=== PATIENT | female | born 1970 | race Caucasian/White ===

== ENCOUNTER 2020-01-31 14:14 | Emergency (ER) | payer OTHER, SELFPAY ==
[2020-01-31 14:27] VITALS: BP 135/81; PULSE 84; RESP 18; TEMP 36.4; O2SAT 99; BMI 34.9
[2020-01-31 18:36] VITALS: BP 151/88; PULSE 76; RESP 15; TEMP 36.9; O2SAT 100
[2020-01-31 19:09] LABS: Glucose Urine UA NEG (NEG); Leukocyte Esterase Urine 1+ (NEG); Nitrite Urine POS (NEG); Specific Gravity - Urine 1.025 (1.005-1.025); Urine Blood 3+ (NEG); Urine Ketones NEG (NEG); Urine Protein 2+ MG/DL (NEG-TRACE)
[2020-01-31 19:09] LABS: Basophils Absolute Auto 0.1 X10*3/uL (0.0-0.2); Basophils Percent Auto 0.9 % (0-2); Eosinophils Absolute Auto 0.3 X10*3/uL (0.0-0.4); Eosinophils Percent Auto 4.1 % (0-4); Hematocrit 36.6 % (37-47); Hemoglobin 12.2 g/dl (12.0-16.0); Imm Gran Abs Auto 0.02 X10*3/uL (0.00-0.03); Imm Gran Pct Auto 0.3 % (0.0-0.4); Lymphocytes Absolute Auto 1.9 X10*3/uL (1.2-4.9); Lymphocytes Percent Auto 25.6 % (20-40); MANUAL DIFF FLAG NO; Mean Corpuscular HGB Conc 33.3 g/dl (31.0-35.0); Mean Corpuscular Hemoglobin 29.3 pg (27.0-33.0); Mean Corpuscular Volume 87.8 fL (80-98); Monocytes Absolute Auto 0.5 X10*3/uL (0.1-1.2); Monocytes Percent Auto 6.1 % (2-11); Neutrophils Absolute Auto 4.7 X10*3/uL (2.0-8.3); Platelet Count 256 X10*3/uL (160-400); Red Blood Count 4.17 X10*6/uL (4.20-5.50); Red Cell Distribution Width 12.7 % (11.0-16.0); White Blood Count 7.5 X10*3/uL (4.8-10.8)
[2020-01-31 19:10] LABS: Appearance Urine CLOUDY; Color Urine YELLOW
[2020-01-31 19:20] LABS: Bacteria Urine 3+ /LPF; Squamous Epithelial Cell Urine 2+ /LPF
--- NOTE | 2020-01-31 19:21 | ED.ABDPAIN ---
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 not work MD elicited complaint: abdominal pain Pertinent past history: none Onset (ago): week(s) (1 week) Pain Consistency: intermittent Location: diffuse Severity: mild Quality: cramping Radiation: epigastric and suprapubic Migration to: no migration Exacerbating factors: nothing Relieving factors: nothing Associated symptoms: denies other symptoms Related Data Previous Rx's Medication Instructions Recorded ciprofloxacin HCl [Cipro] 500 mg PO BID #10 tab 01/31/20 permethrin 60 ml TOPICAL Q7D #118 ml 01/31/20 Allergies Allergy/AdvReac Type Severity Reaction Status Date / Time No Known Allergies Allergy Unverified 12/21/19 16:23 Review of Systems Review of Systems REVIEW OF SYSTEMS: Pertinent positives and negatives are stated above in the history. GEN: no fevers, chills, fatigue HEENT: no nasal congestion, sore throat, ear pain NEURO: no headache, dizziness, focal weakness PULM: no cough, shortness of breath CV: no chest pain, palpitations, LE edema ABD: no abdominal pain, nausea, vomiting, diarrhea : no dysuria, urgency, frequency SKIN: diffuse erythematous rash ROS otherwise negative x 10 Physical Exam Vital Signs: Vital Signs: Vital Signs Temp Pulse Resp BP Pulse Ox 01/31/20 18:36 98.4 F 76 15 151/88 H 100 01/31/20 14:27 97.6 F 84 18 135/81 99 Body Mass Index 34.9 VITAL SIGNS: Reviewed. GENERAL: Well developed, well nourished, in no acute distress. HEAD: Normocephalic/atraumatic, EYES: PERRLA No pallor/icterus noted EARS: Ext canals without abnormality NOSE: Nares patent bilateral OROPHARYNX: Oral mucosa moist no oral lesions NECK: Supple, no adenopathy LUNGS: Normal breath sounds. No adventitious sounds or accessory muscle use CARDIOVASCULAR: Regular rate and rhythm without noted murmurs, no JVD or lower extremity edema. ABDOMEN: Soft, mild diffuse tenderness , non-distended with bowel sounds. No rigidity. No guarding. No palpable masses or hernias noted MUSCULOSKELETAL: No tenderness, deformities, EXTREMITIES: No cyanosis or edema. SKIN: diffuse maculopapular rash on trunk and extremities, no ulcerations, jaundice, pallor, or petechiae NEUROLOGIC: Alert and oriented x 3. Strength and sensation to light touch were grossly intact Course Course Course Narrative: patient with questionable scabies diffuse abdominal pain workup showed normal WBC count but urine showed bacteria and nitrite positive will give her Cipro and permethrin lotion advised to follow-up with her primary care doctor MDM - Abdominal Pain Lab Data Result diagrams: 01/31/20 19:01/31/20 19:01 Labs: Lab Results 01/31/20 01/31/20 01/31/20 Range/Units 19:01 19:01 19:01 WBC 7.5 (4.8-10.8) X10*3/uL RBC 4.17 L (4.20-5.50) X10*6/uL Hgb 12.2 (12.0-16.0) g/dl Hct 36.6 L (37-47) % MCV 87.8 (80-98) fL MCH 29.3 (27.0-33.0) pg MCHC 33.3 (31.0-35.0) g/dl RDW 12.7 (11.0-16.0) % Plt Count 256 (160-400) X10*3/uL MPV 10.0 (9.4-12.3) fL Immature Gran % (Auto) 0.3 (0.0-0.4) % Neut % (Auto) 63.0 (45-73) % Lymph % (Auto) 25.6 (20-40) % [place] % (Auto) 6.1 (2-11) % Eos % (Auto) 4.1 H (0-4) % Baso % (Auto) 0.9 (0-2) % Lymph # (Auto) 1.9 (1.2-4.9) X10*3/uL [place] # (Auto) 0.5 (0.1-1.2) X10*3/uL Eos # (Auto) 0.3 (0.0-0.4) X10*3/uL Baso # (Auto) 0.1 (0.0-0.2) X10*3/uL Abs Immat Gran (auto) 0.02 (0.00-0.03) X10*3/uL Absolute Neuts (auto) 4.7 (2.0-8.3) X10*3/uL Absolute Nucleated RBC 0.000 (0.0-0.012) X10*3/uL Nucleated RBC % (auto) 0.0 (0.0-0.2) /100WBC Sodium 137 (135-145) mmol/L Potassium 4.0 (3.3-5.1) mmol/l Chloride 103 (96-108) mmol/L Carbon Dioxide 27 (22-29) mmol/L Anion Gap 11 L (12-20) BUN 13 (9-16) mg/dL Creatinine 0.79 (0.5-1.4) mg/dL Estim Creat Clear Calc 98.3 Estimated GFR > 60 Random Glucose 92 (60-115) mg/dL Calcium 8.9 (8.4-10.2) mg/dL Total Bilirubin 0.4 (0.0-1.0) mg/dL Direct Bilirubin 0.2 (0.0-0.5) mg/dL AST 15 (5-31) U/L ALT 13 (0-31) U/L Alkaline Phosphatase 67 (39-117) U/L Total Protein 7.0 (6.5-8.0) g/dL Albumin 4.1 (3.5-5.0) g/dL Lipase 26 (8-78) U/L Urine Color Urine Appearance Urine pH (5.0-8.0) Ur Specific [place] (1.005-1.025) Urine Protein (NEG-TRACE) MG/DL Urine Glucose (UA) (NEG) MG/DL Urine Ketones (NEG) MG/DL Urine Blood (NEG) Urine Nitrite (NEG) Ur Leukocyte Esterase (NEG) Urine RBC (0) /HPF Urine WBC (0-4) /HPF Ur Squamous Epith Cells /LPF Urine Bacteria /LPF 01/31/20 Range/Units 19:02 WBC (4.8-10.8) X10*3/uL RBC (4.20-5.50) X10*6/uL Hgb (12.0-16.0) g/dl Hct (37-47) % MCV (80-98) fL MCH (27.0-33.0) pg MCHC (31.0-35.0) g/dl RDW (11.0-16.0) % Plt Count (160-400) X10*3/uL MPV (9.4-12.3) fL Immature Gran % (Auto) (0.0-0.4) % Neut % (Auto) (45-73) % Lymph % (Auto) (20-40) % [place] % (Auto) (2-11) % Eos % (Auto) (0-4) % Baso % (Auto) (0-2) % Lymph # (Auto) (1.2-4.9) X10*3/uL [place] # (Auto) (0.1-1.2) X10*3/uL Eos # (Auto) (0.0-0.4) X10*3/uL Baso # (Auto) (0.0-0.2) X10*3/uL Abs Immat Gran (auto) (0.00-0.03) X10*3/uL Absolute Neuts (auto) (2.0-8.3) X10*3/uL Absolute Nucleated RBC (0.0-0.012) X10*3/uL Nucleated RBC % (auto) (0.0-0.2) /100WBC Sodium (135-145) mmol/L Potassium (3.3-5.1) mmol/l Chloride (96-108) mmol/L Carbon Dioxide (22-29) mmol/L Anion Gap (12-20) BUN (9-16) mg/dL Creatinine (0.5-1.4) mg/dL Estim Creat Clear Calc Estimated GFR Random Glucose (60-115) mg/dL Calcium (8.4-10.2) mg/dL Total Bilirubin (0.0-1.0) mg/dL Direct Bilirubin (0.0-0.5) mg/dL AST (5-31) U/L ALT (0-31) U/L Alkaline Phosphatase (39-117) U/L Total Protein (6.5-8.0) g/dL Albumin (3.5-5.0) g/dL Lipase (8-78) U/L Urine Color YELLOW Urine Appearance CLOUDY Urine pH 7.0 (5.0-8.0) Ur Specific [place] 1.025 (1.005-1.025) Urine Protein 2+ H (NEG-TRACE) MG/DL Urine Glucose (UA) NEG (NEG) MG/DL Urine Ketones NEG (NEG) MG/DL Urine Blood 3+ H (NEG) Urine Nitrite POS H (NEG) Ur Leukocyte Esterase 1+ H (NEG) Urine RBC 15-29 H (0) /HPF Urine WBC 15-29 H (0-4) /HPF Ur Squamous Epith Cells 2+ /LPF Urine Bacteria 3+ /LPF Discharge Plan Discharge Clinical Impression: UTI (urinary tract infection), Scabies Patient Disposition: Home, Self-Care Instructions: Urinary Tract Infection in Women (ED), Scabies (ED) Additional Instructions: drink plenty of fluids, apply cream for scabies as advised repeat in 7 days Prescriptions: New permethrin 1 % liquid 60 ml topical Q7D Qty: 118 RF: 0 ciprofloxacin HCl [Cipro] 500 mg tablet 500 mg PO BID Qty: 10 RF: 0 Interventions: ED Discharge Assessment Last Done: 01/31/20 21:42 Discharge Date/Time: 01/31/20 21:50 [facility], [facility] Past Medical History Medical History Scabies Social History Social History Smoking Status: Never smoker Use of substances other than those prescribed or required for medical reasons: No Advance Directives: No Advance Directives Information Provided: Yes
[2020-01-31 19:43] LABS: Anion Gap 11 (12-20); Blood Urea Nitrogen 13 mg/dL (9-16); Calcium 8.9 mg/dL (8.4-10.2); Carbon Dioxide 27 mmol/L (22-29); Chloride 103 mmol/L (96-108); Creatinine Clr Calc Pharmacy 98.3; Estimated Glomerular Filt Rate > 60; Glucose Random 92 mg/dL (60-115); Lipase 26 U/L (8-78); Sodium 137 mmol/L (135-145)
[2020-01-31 19:44] LABS: Alanine Aminotransferase 13 U/L (0-31); Albumin Level 4.1 g/dL (3.5-5.0); Alkaline Phosphatase 67 U/L (39-117); Aspartate Amino Transferase 15 U/L (5-31); Bilirubin Direct 0.2 mg/dL (0.0-0.5); Bilirubin Total 0.4 mg/dL (0.0-1.0)
[2020-01-31] MEDS: 0.9 % Sodium Chloride 1,000 ML 999 ML IVCONT (19:53)
[2020-01-31] MEDS: levoFLOXacin 500 MG TABLET PO (21:44)
== END 2020-01-31 21:50 | disposition home or self-care (01) ==
PROVIDERS: Emergency Provider Internal Medicine; PCP Family Medicine
DX: N39.0 Urinary tract infection, site not specified (principal); R10.13 Epigastric pain; B86 Scabies; Z79.899 Other long term (current) drug therapy
CPT/HCPCS: 36415; 80048; 80076; 81001; 83690; 85025; 87086; 87088; 87186; 96360; 99284

== ENCOUNTER → 2020-08-28 14:33 | Outpatient (BNVA) | payer OTHER, SELFPAY | PROVIDERS: PCP Family Medicine | DX: Z11.1 Encounter for screening for respiratory tuberculosis (principal) | CPT/HCPCS: 36415; 86481 ==

== ENCOUNTER 2021-06-17 23:37 | Emergency (ER) | payer OTHER, SELFPAY ==
[2021-06-18 00:03] VITALS: BP 134/86; PULSE 87; RESP 18; TEMP 37.1; O2SAT 97; BMI 36.6
[2021-06-18 00:23] LABS: Strep A Nucleic Acid Negative (Negative)
--- NOTE | 2021-06-18 01:20 | ED.GENADULT ---
HPI - General Adult General Chief complaint: General Medical Stated complaint: Sore throat/?Fever Time Seen by Provider: 06/18/21 00:13 Source: patient Mode of arrival: ambulatory Limitations: no limitations History of Present Illness HPI narrative: Patient comes to the emergency room complaining of mild cough and sore throat for 5 days. Patient denies fever or chills. No ear pain. Patient states that she gets tested for COVID-19 once a week at her work and she has been tested negative. Related Data Previous Rx's Medication Instructions Recorded ciprofloxacin HCl 500 mg tablet 500 mg PO BID #10 tab 01/31/20 (Cipro) permethrin 1 % topical liquid 60 ml TOPICAL Q7D #118 ml 01/31/20 Allergies Allergy/AdvReac Type Severity Reaction Status Date / Time No Known Allergies Allergy Unverified 12/21/19 16:23 Review of Systems Review of Systems: Constitutional : No Weight loss, No Fever, No Chills, No Night Sweats, No Fatigue, No Malaise ENT/Mouth : No Hearing loss, No Ear Pain, No Nasal Congestion, No Sinus Pain, complaining of intermittent hoarseness, constant sore throat, No Rhinorrhea, No Swallowing Difficulty Eyes: No Eye Pain, No Swelling, No Redness, No Foreign Body, No Discharge, No Vision Changes Cardiovascular : No Chest Pain, No SOB, No Dyspnea on Exertion, No Orthopnea, No Edema, No Palpitations Respiratory : Mild Cough, No Sputum, No Wheezing, No Smoke Exposure, No Dyspnea Gastrointestinal : No Nausea, No Vomiting, No Diarrhea, No Constipation, No abdominal Pain, No Hematochezia, No Melena Genitourinary : no irregular bleeding, No Dysuria, No Urinary Frequency, No Hematuria, No Urinary Incontinence, No Urgency, No Flank Pain, No Urinary Flow Changes, No Hesitancy Musculoskeletal : No joint pain, No Myalgias, No Joint Swelling Skin : No Skin Lesions, No rash Neuro : No Weakness, No Numbness, No Paresthesias, No Loss of Consciousness, No Dizziness, No Headache Psych : No Anxiety/Panic, No Depression, No SI/HI/AH/VH, No Social Issues, Heme/Lymph: No Bruising, No Bleeding,No Lymphadenopathy Endocrine : No Polyuria, No Polydipsia, No Temperature Intolerance [facility] Past Medical History Medical History Scabies Social History Social History Advance Directives: No Patient : No Physical Exam ED Vital Signs: Vital Signs - 24 hr 06/18/21 00:03 Temperature 98.8 F Pulse Rate 87 Respiratory Rate 18 Blood Pressure 134/86 Pulse Oximetry 97 BMI result Body Mass Index 36.6 Const Other: Appearance: Alert. Oriented X3. No acute distress. Eyes: Pupils equal, round and reactive to light. ENT: Pharynx is erythema,, no exudates, no visualized abscesses. Tympanic membranes and ear canals bilaterally within normal limits Neck: Normal inspection. Neck supple. No lymph nodes noted. No crepitus CVS: Normal heart rate and rhythm. Pulses normal. Normal S1 and S2 Respiratory: No respiratory distress. Breath sounds normal. No Wheezing. No rales Abdomen: Soft and nontender. No rigidity. No distention. Skin: Skin warm and dry. Normal skin color. Normal skin turgor. Extremities: No lower extremity edema. No Lacerations. No Rash Neuro: Oriented X 3. No motor deficit. No sensory deficit. Moving all extremities. No slurred speech. CN 2 through 12 grossly intact Psych: calm, cooperative, normal affect Course Course Course Narrative: Patient tested negative for strep, influenza and COVID. At this time antibiotics are not indicated Patient was given 1 dose of oral Decadron and viscous lidocaine. Medical Decision Making Lab Data Labs: Lab Results 06/18/21 06/18/21 06/18/21 Range/Units 00:08 01:04 01:04 COVID-19 (ABRAN) Negative (Negative) COVID-19 Clin Com See Note Influenza Type A (MEAGHAN) Negative (Negative) Influenza Type B (MEAGHAN) Negative (Negative) Influenza A & B Note See Note S. pyogenes GrpA MEAGHAN Negative (Negative) Discharge Plan Discharge Clinical Impression: Pharyngitis Patient Disposition: Home, Self-Care Instructions: Pharyngitis (ED) Additional Instructions: Please follow-up with your primary care physician tomorrow. If you have any worsening or new symptoms, please return to the emergency room or call 911 Prescriptions: No Action permethrin 1 % liquid 60 ml topical Q7D Qty: 118 0RF Rx Instructions: apply second treatment 7 days after first treatment if live lice remain ciprofloxacin HCl [Cipro] 500 mg tablet 500 mg PO BID Qty: 10 0RF
[2021-06-18 01:27] LABS: COVID-19 Test Negative (Negative); IDNOW Serial# 55D5AD1C; Influenza A Negative (Negative); Influenza B2 Negative (Negative)
[2021-06-18] MEDS: Lidocaine HCl Viscous 2 % 15 ML SOLUTION MUCOUS MEM (01:35)
[2021-06-18] MEDS: dexAMETHasone sod phosphate 4 MG/ML VIAL 6 MG IVPUSH (01:35)
== END 2021-06-18 01:45 | disposition home or self-care (01) ==
PROVIDERS: Physician Assistant Medical; Emergency Provider Emergency Medicine
DX: J02.9 Acute pharyngitis, unspecified (principal); Z20.822 Contact with and (suspected) exposure to COVID-19
CPT/HCPCS: 36415; 87502; 87635; 87651; 96374; 99283; 99284; J1100

== ENCOUNTER → 2021-09-22 10:40 | Outpatient (BNVA) | payer OTHER, SELFPAY | PROVIDERS: Visit Provider Physician Assistant Medical | DX: R76.11 Nonspecific reaction to tuberculin skin test without active tuberculosis (principal) | CPT/HCPCS: 36415; 86481 ==

== ENCOUNTER → 2022-09-28 11:11 | Outpatient (BNVA) | payer SELFPAY | DX: R76.11 Nonspecific reaction to tuberculin skin test without active tuberculosis (principal) | CPT/HCPCS: 36415; 86481 ==

== ENCOUNTER 2023-03-05 07:30 | Outpatient (AMB) | payer OTHER, SELFPAY ==
[2023-03-05 07:32] VITALS: BP 114/80; PULSE 95; O2SAT 98; BMI 36.8
--- NOTE | 2023-03-05 07:32 | MHC.PC.OV ---
Vital Signs 03/05/23 07:32 Height 5 ft 5 in Weight 221 lb BMI 36.8 BP 114/80 Blood Pressure Location Lt brachial Position Sitting Pulse 95 Pulse Source Pulse Oximeter Pulse Oximetry (%) 98 Oxygen Delivery Method Room Air Intake Visit Reasons: Annual PE- NEEDS PHQ-9 + THRIVE Intake Note: Pt is here today for her PE Allergies No Known Allergies Allergy (Verified 03/05/23 07:32) Medication List - Last Reconciled 03/05/23 by Louann Jones MD No Known Home Meds Tobacco use date assessed: 03/05/23 Dental Screening Dental Screen Date: 03/05/23 Did you have a dental visit in the last 12 months?: No Was dental information given to patient?: Patient has dentist HPI Annual PE- NEEDS PHQ-9 + THRIVE HPI Details 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 PFSH Medical History Scabies Family History (Updated 03/05/23 @ 08:01 by Louann Jones MD) Father CAD (coronary artery disease), Onset Age: 50 Mother Pacemaker Social History (Updated 03/05/23 @ 08:05 by Louann Jones MD) Household Members Other:: lives with partner, 3 children (6, 13, 28), works for [employer], Housing: Apartment Patient Tobacco Use Status: Never used Tobacco e-Cigarette/Vaping Use: Never Used service: No Current occupational status: employed Cognitive needs: No Hearing needs: No Vision needs: No Questionnaire PHQ-9 Over the last 2 weeks, how often have you been bothered by any of the following problems? 1. Little interest or pleasure in doing things: not at all 2. Feeling down, depressed, or hopeless: several days 3. Trouble falling or staying asleep, or sleeping too much: several days 4. Feeling tired or having little energy: several days 5. Poor appetite or overeating: several days 6. Feeling bad about yourself - or that you are a failure or have let yourself or your family down: not at all 7. Trouble concentrating on things, such as reading the newspaper or watching television: not at all 8. Moving or speaking so slowly that other people could have noticed. Or the opposite - being so fidgety or restless that you have been moving around a lot more than usual: not at all 9. Thoughts that you would be better off or of hurting yourself in some way: not at all Total score: 4 Depression Screening Interpretation: Negative Depression Screening Done: Yes 00535 - PHQ-9 Billing: Patient declined-do not bill Source: Developed by Drs. Manpreet Arriaga, Patricia Mckeon, Gera López and colleagues, with an educational vianney from [employer]. Thrive Questionnaire Date Thrive assessed: 03/05/23 I am a: Patient What is your living situation today?: I have a steady place to live Within the past 12 months, did the food you bought not last and you didn't have the money to get more?: Never true Within the past 12 months, did you worry whether your food would run out before you got money to buy more?: Never true Do you have trouble paying for medicines?: No Do you have trouble getting transportation to medical appointments?: No Do you have trouble paying your heating and electricity bill?: No Do you have trouble taking care of your child, family member or friend?: No Do you have trouble with day-to-day activities such as bathing, preparing meals, shopping, managing finances, etc.?: No Are you currently unemployed and looking for a job?: No Are you interested in more education?: No AUDIT C Alcohol Use Questionnaire (AUDIT-C) 1. How often do you have a drink containing alcohol?: Monthly or less 2. How many drinks containing alcohol do you have on a typical day when you are drinking?: 1 or 2 3. How often do you have six or more drinks on one occasion?: Never Total Score: 1 OSEI-7 AMB Questionnaire OSEI-7 Date OSEI - 7 assessed: 03/05/23 Feeling nervous, anxious, or on edge: 0 = Not at all Not being able to stop or control worryin = Several days Worrying too much about different things: 1 = Several days Trouble relaxin = Several days Being so restless that it is hard to sit still: 0 = Not at all Becoming easily annoyed or irritable: 1 = Several days Feeling afraid as if something awful might happen: 0 = Not at all Total OSEI-7 score (0-4 normal; 5-9 mild; 10-14 moderate; 15-21 severe): 4 Source: Developed by Drs. Manpreet Arriaga, Patricia Mckeon, Gera López and colleagues, with an educational vianney from [employer]. Review of Systems Const All systems reviewed & are unremarkable except as noted in HPI and below Reports no additional complaints Eyes Reports no additional complaints ENT Reports no additional complaints Card Reports no additional complaints Resp Reports no additional complaints GI Reports no additional complaints Reports no additional complaints Physical exam (Primary Care) Vital Signs: Last Vital Signs Pulse 95 03/05/23 07:32 BP 114/80 03/05/23 07:32 Pulse Ox 98 03/05/23 07:32 Oxygen Delivery Method Room Air 03/05/23 07:32 BMI result Body Mass Index 36.8 Tobacco/Smoking Status: Tobacco use Status Tobacco use date assessed 03/05/23 03/05/23 07:37 Patient Tobacco Use Status Never used Tobacco 03/05/23 07:37 e-Cigarette/Vaping Use Never Used 03/05/23 07:37 PHQ-9: PHQ-9 Score PHQ-9: Total score 4 03/05/23 07:53 Depression Screening Interpretation: Negative Thrive Assessment: Date of Thrive Assessment Date Thrive assessed 03/05/23 03/05/23 07:53 Const General: no acute distress HENMT Head: Yes normal to inspection Ears: hearing grossly normal bilaterally Face and sinus: Yes normal facial exam Mouth: Normal oral and palatal mucosa present Throat: Yes posterior oropharynx normal Eyes General: appearance normal, both eyes and all related structures Neck Neck: Yes no lymphadenopathy and Yes supple Chest Breast/axilla inspection: normal inspection of the breasts Breast/axilla palpation: normal palpation of the breasts and normal palpation of the axillae Resp Effort & Inspection: normal respiratory effort Auscultation: clear to auscultation bilaterally Cardio Rhythm: regular rhythm Heart sounds: S1 normal heart sound present and S2 normal heart sound present GI Inspection: Yes normal to inspection Palpation (GI): Soft to palpation Percussion: Yes normal to percussion Auscultation: normal bowel sounds External Female Exam: normal external appearance Speculum Exam - Vagina: normal appearance of the vagina Speculum Exam - Cervix: normal appearance of the cervix Bimanual exam- vagina & uterus: normal bimanual exam Assessment and Plan Assessment & Plan (1) Annual physical exam: Code(s): Z00.00 - Encounter for general adult medical examination without abnormal findings Plan: well balanced diet, regular exercise discussed, pap done, pt will return for fasting labs. mammogram and colonoscopy to be scheduled Orders: Orders Complete Blood Count Auto Diff Today Z00.00 - Encounter for general adult medical examination without abnormal findings Pap Smear Today Z00.00 - Encounter for general adult medical examination without abnormal findings MM screening mammo BI Today Z12.31 - Encounter for screening mammogram for malignant neoplasm of breast Comprehensive [place]. Panel Fast Today Z00.00 - Encounter for general adult medical examination without abnormal findings Lipid Panel Today Z00.00 - Encounter for general adult medical examination without abnormal findings TSH reflex Free T4 Today Z00.00 - Encounter for general adult medical examination without abnormal findings Vitamin D 25-OH Total Today Z00.00 - Encounter for general adult medical examination without abnormal findings Referrals Gastroenterology Referral Z00.00 - Encounter for general adult medical examination without abnormal findings Coding Level of Care Code New Pt Prev Care 40-64y(22342) Diagnoses Annual physical exam Z00.00
== END 2023-03-05 10:38 | disposition home or self-care (01) ==
PROVIDERS: Visit Provider Internal Medicine
DX: Z00.00 Encounter for general adult medical examination without abnormal findings (principal)
CPT/HCPCS: 99386

== ENCOUNTER 2023-03-05 08:34 | Outpatient (REF) | payer OTHER, SELFPAY ==
[2023-03-12 07:45] LABS: HPV mRNA E6/E7 Not Detected (Not Detected)
== END 2023-03-05 08:35 | disposition home or self-care (01) ==
LOC: HO.LNP 08:34
PROVIDERS: Visit Provider Internal Medicine
DX: Z12.4 Encounter for screening for malignant neoplasm of cervix (principal); Z11.51 Encounter for screening for human papillomavirus (HPV)
CPT/HCPCS: 87624; 88142

== ENCOUNTER 2023-03-06 10:47 | Outpatient (REF) | payer OTHER, SELFPAY ==
[2023-03-06 13:39] LABS: MANUAL DIFF FLAG NO
[2023-03-06 13:41] LABS: Basophils Absolute Auto 0.1 X10*3/uL (0.0-0.2); Basophils Percent Auto 1.1 % (0-2); Eosinophils Absolute Auto 0.2 X10*3/uL (0.0-0.4); Eosinophils Percent Auto 2.1 % (0-4); Hematocrit 40.5 % (37.0-47.0); Hemoglobin 13.2 g/dl (12.0-16.0); Imm Gran Abs Auto 0.03 X10*3/uL (0.00-0.03); Imm Gran Pct Auto 0.4 % (0.0-0.4); Lymphocytes Absolute Auto 1.8 X10*3/uL (1.2-4.9); Lymphocytes Percent Auto 23.6 % (20-40); Mean Corpuscular HGB Conc 32.6 g/dl (31.0-35.0); Mean Corpuscular Hemoglobin 29.8 pg (27.0-33.0); Mean Corpuscular Volume 91.4 fL (80.0-98.0); Mean Platelet Volume 10.9 fL (9.4-12.3); Monocytes Absolute Auto 0.5 X10*3/uL (0.1-1.2); Monocytes Percent Auto 6.6 % (2-11); Neutrophils Percent Auto 66.2 % (45-73); Platelet Count 275 X10*3/uL (160-400); Red Blood Count 4.43 X10*6/uL (4.20-5.50); Red Cell Distribution Width 13.2 % (11.0-16.0); White Blood Count 7.5 X10*3/uL (4.8-10.8)
[2023-03-06 14:02] LABS: Alanine Aminotransferase 19 U/L (0-31); Albumin Level 4.1 g/dL (3.5-5.0); Alkaline Phosphatase 65 U/L (39-117); Anion Gap 12 (12-20); Aspartate Amino Transferase 20 U/L (5-31); Bilirubin Total 0.5 mg/dL (0.0-1.0); Blood Urea Nitrogen 17 mg/dL (9-16); Calcium 9.4 mg/dL (8.4-10.2); Carbon Dioxide 26 mmol/L (22-29); Chloride 108 mmol/L (96-108); Cholesterol 189 mg/dL (<200); Estimated Glomerular Filt Rate > 60; Glucose Fasting 101 mg/dL (60-99); HDL Cholesterol 57 mg/dL (>40); LDL Cholesterol Calculated 110 mg/dL (<100); Potassium 4.5 mmol/L (3.3-5.1); Sodium 141 mmol/L (135-145); Total Protein 7.2 g/dL (6.5-8.0); Triglycerides 111 mg/dL (<150)
[2023-03-06 14:11] LABS: TSH reflex Free T4 1.16 uIU/mL (0.32-4.0); Vitamin D 25-OH Total 26.6 ng/mL (>30)
== END 2023-03-06 10:48 | disposition home or self-care (01) ==
LOC: HO.HMGCLDS 10:47
PROVIDERS: PCP Internal Medicine; Visit Provider Internal Medicine
DX: Z00.00 Encounter for general adult medical examination without abnormal findings (principal)
CPT/HCPCS: 36415; 80053; 80061; 82306; 84443; 85025

== ENCOUNTER 2023-03-22 11:15 | Outpatient (AMB) | payer OTHER, SELFPAY ==
--- NOTE | 2023-03-22 11:17 | MHC.PC.OV ---
Vital Signs 03/22/23 11:20 Height 5 ft 5 in Weight 221 lb BMI 36.8 BP 130/80 Blood Pressure Location Lt brachial Position Sitting Pulse 77 Pulse Source Pulse Oximeter Pulse Oximetry (%) 96 Oxygen Delivery Method Room Air Intake Visit Reasons: Elbow pain, cramps Intake Note: Pt is here today for a sick visit. Pt c/o lower abdominal cramps, and R elbow pain. Allergies No Known Allergies Allergy (Verified 03/22/23 11:20) Medication List - Last Reconciled 03/22/23 by Louann Jones MD No Known Home Meds Tobacco use date assessed: 03/05/23 HPI Elbow pain, cramps HPI Details Pt c/o R elbow pain for 1 week worse when using it. Patient denies injury but has been using her upper extremities a lot lifting and caring. Patient complains of pelvic cramps and lower abdominal discomfort on and off for the last month. Patient denies spotting her last period was 2 months ago. Patient reports history of uterine fibroids. She reports heavy vaginal bleeding every other month lasting up to a week. Patient denies fever chills dysuria back pain nausea vomiting change in bowel habits hematochezia [facility] Medical History Scabies Family History (Updated 03/05/23 @ 08:01 by Louann Jones MD) Father CAD (coronary artery disease), Onset Age: 50 Mother Pacemaker Social History (Updated 03/05/23 @ 08:05 by Louann Jones MD) Household Members Other:: lives with partner, 3 children (6, 13, 28), works for [employer], Housing: Apartment Patient Tobacco Use Status: Never used Tobacco e-Cigarette/Vaping Use: Never Used service: No Current occupational status: employed Cognitive needs: No Hearing needs: No Vision needs: No Questionnaire Thrive Questionnaire Date Thrive assessed: 03/05/23 OSEI-7 AMB Questionnaire OSEI-7 Date OSEI - 7 assessed: 03/05/23 Source: Developed by Drs. Manpreet Arriaga, Patricia Mckeon, Gera López and colleagues, with an educational vianney from [employer] Review of Systems Const All systems reviewed & are unremarkable except as noted in HPI and below Reports no additional complaints Eyes Reports no additional complaints ENT Reports no additional complaints Card Reports no additional complaints Resp Reports no additional complaints GI Reports no additional complaints Physical exam (Primary Care) Vital Signs: Last Vital Signs Pulse 77 03/22/23 11:20 BP 130/80 03/22/23 11:20 Pulse Ox 96 03/22/23 11:20 Oxygen Delivery Method Room Air 03/22/23 11:20 BMI result Body Mass Index 36.8 Tobacco/Smoking Status: Tobacco use Status Tobacco use date assessed 03/05/23 03/22/23 11:19 Patient Tobacco Use Status Never used Tobacco 03/22/23 11:19 e-Cigarette/Vaping Use Never Used 03/22/23 11:19 Thrive Assessment: Date of Thrive Assessment Date Thrive assessed 03/05/23 03/22/23 11:19 Const General: no acute distress HENMT Head: Yes normal to inspection Resp Effort & Inspection: normal respiratory effort Auscultation: clear to auscultation bilaterally Cardio Rhythm: regular rhythm Heart sounds: S1 normal heart sound present and S2 normal heart sound present GI Inspection: Yes obesity Palpation (GI): Soft to palpation and Tenderness to palpation present (GI) suprapubicly; with no rebound tenderness Auscultation: normal bowel sounds Extrem Other: Reproducible tenderness in the right lateral elbow, no soft tissue swelling erythema warmth Assessment and Plan Assessment & Plan (1) Pelvic mass: Code(s): R19.00 - Intra-abdominal and pelvic swelling, mass and lump, unspecified site Plan: Obtain pelvic ultrasound to evaluate for uterine fibroids (2) Pelvic pain: Code(s): R10.2 - Pelvic and perineal pain Plan: Check UA and culture , obtain abdominal and pelvic ultrasound (3) Tennis elbow: Code(s): M77.10 - Lateral epicondylitis, unspecified elbow Plan: Meloxicam Is prescribed and elbow exercises given to the patient. if the symptoms persist she will be referred to PT Orders: Orders US pelvic and transvaginal Today R10.2 - Pelvic and perineal pain, R19.00 - Intra-abdominal and pelvic swelling, mass and lump, unspecified site UA CC w/rflx Micro + Cult Today R10.2 - Pelvic and perineal pain, R30.0 - Dysuria US abdomen complete Today R19.00 - Intra-abdominal and pelvic swelling, mass and lump, unspecified site Medications: New meloxicam 15 mg PO DAILY 10 tabs 0RF Coding Level of Care Code Est Pt Level 4 (83450) Diagnoses Pelvic mass R19.00 Pelvic pain R10.2 Tennis elbow M77.10
[2023-03-22 11:20] VITALS: BP 130/80; PULSE 77; O2SAT 96; BMI 36.8
== END 2023-03-22 11:55 | disposition home or self-care (01) ==
PROVIDERS: PCP Internal Medicine; Visit Provider Internal Medicine
DX: R19.00 Intra-abdominal and pelvic swelling, mass and lump, unspecified site (principal); R10.2 Pelvic and perineal pain; M77.10 Lateral epicondylitis, unspecified elbow
CPT/HCPCS: 99214

== ENCOUNTER 2023-03-22 13:29 | Outpatient (REF) | payer OTHER, SELFPAY ==
--- NOTE | ~2023-03-22 | US_ITS ---
EXAMINATION: US PELVIS CLINICAL INFORMATION: Pelvic cramps. Lower abdominal pain. LMP 2 months ago. COMPARISON: None available. TECHNIQUE: Ultrasound of the pelvis is performed using both transabdominal and transvaginal transducers along with Doppler. Transvaginal imaging is performed due to inadequate visualization transabdominally. Technically limited study due to patient's body habitus and overlying bowel gas. FINDINGS: Uterus: The uterus is anteverted. Uterus echotexture is heterogeneous. The uterus measures 9.8 x 5.7 x 6.4 cm. The endometrial stripe measures 0.7 cm. Fundal fibroid measures 2.4 x 2.1 x 2.4 cm. Lower uterine segment fibroid measures 1.2 x 0.9 x 1.5 cm. Cervical nabothian cyst. Loculated fluid in the scar. Adnexa: Both ovaries are not well visualized. There is no pelvic ascites or fluid collection. US/US pelvic and transvaginal IMPRESSION: Uterine fibroids.
[2023-03-22 16:25] LABS: Appearance Urine Cloudy; Color Urine Yellow; Glucose Urine UA Negative (Negative); Leukocyte Esterase Urine Moderate (2+) (Negative); Nitrite Urine Positive (Negative); PH 6.5 (5.0-9.0); Specific Gravity - Urine 1.025 (1.005-1.025); UMIC TRIGGER UACC YES; Urine Blood Negative (Negative); Urine Ketones Negative (Negative); Urine Protein Negative (Neg-Trace)
[2023-03-22 16:49] LABS: Bacteria Urine 4+ (None Seen); Hyaline Casts Urine 0-2 /LPF (0-2); RBC Urine 0-2 /HPF (0-2); UACC Culture Trigger YES; WBC Urine 21-50 /HPF (0-5)
== END 2023-03-22 13:30 | disposition home or self-care (01) ==
LOC: HO.HMGCX 13:29
PROVIDERS: PCP Internal Medicine; Visit Provider Internal Medicine
DX: R10.2 Pelvic and perineal pain (principal); R19.00 Intra-abdominal and pelvic swelling, mass and lump, unspecified site
CPT/HCPCS: 76830; 76856; 81001; 87086; 87088; 87186

== ENCOUNTER 2023-04-16 12:01 | Outpatient (REF) | payer OTHER, SELFPAY ==
--- NOTE | ~2023-04-16 | MM_ITS ---
EXAMINATION: MM SCREENING DIGITAL BREAST TOMOSYNTHESIS, BILATERAL CLINICAL INFORMATION: Screening. Asymptomatic. COMPARISON: Mammography: This is a baseline mammogram. TECHNIQUE: Digital breast tomosynthesis is performed in both the craniocaudal and mediolateral oblique views along with computer-aided detection (CAD). Synthesized 2D images are generated from the tomosynthesis. FINDINGS: There are scattered areas of fibroglandular density (ACR BI-RADS breast composition Category b). There are no significant masses, abnormal calcifications, or other abnormalities. MM/MM tomosynthesis screening BI IMPRESSION: No mammographic evidence of malignancy. ASSESSMENT: BI-RADS BI-RADS 1 - Negative RECOMMENDATION: Routine annual mammography screening. 1 year F/U This examination should not preclude the clinical evaluation of a suspicious palpable abnormality. This patient's information was entered into a reminder system with a target due date for their next mammogram.
== END 2023-04-16 12:02 | disposition home or self-care (01) ==
LOC: HO.MAMMO 12:01
PROVIDERS: PCP Internal Medicine; Visit Provider Internal Medicine
DX: Z12.31 Encounter for screening mammogram for malignant neoplasm of breast (principal)
CPT/HCPCS: 77063; 77067

== ENCOUNTER → 2023-04-16 12:15 | Outpatient (BNV) | payer OTHER, SELFPAY | PROVIDERS: PCP Internal Medicine; Visit Provider Radiology Diagnostic Radiology | DX: Z12.31 Encounter for screening mammogram for malignant neoplasm of breast (principal) | CPT/HCPCS: 77063; 77067 ==

== ENCOUNTER 2023-05-14 12:00 | Emergency (ER) | payer OTHER, SELFPAY ==
--- NOTE | ~2023-05-14 | XR_ITS ---
EXAMINATION: XR CHEST CLINICAL INFORMATION: Chest pain COMPARISON: None available. TECHNIQUE: 2 views of the chest were obtained. FINDINGS: No significant abnormality is noted involving the heart, lungs, mediastinum, bony thorax or soft tissues. XR/XR chest 2V IMPRESSION: Unremarkable chest examination.
--- NOTE | 2023-05-14 12:05 | ECG_ITS ---
Test Reason : cp Blood Pressure : / mmHG Vent. Rate : 068 BPM Atrial Rate : 068 BPM P-R Int : 140 ms QRS Dur : 086 ms QT Int : 406 ms P-R-T Axes : 048 018 -01 degrees QTc Int : 431 ms Normal sinus rhythm Cannot rule out Inferior infarct , age undetermined Cannot rule out Anterior infarct , age undetermined Abnormal ECG No previous ECGs available Referred By: Kelsey Morrell Electronically Signed By:FREDDIE MCCARTY
[2023-05-14 12:17] VITALS: BP 173/99; PULSE 80; RESP 20; TEMP 37.2; O2SAT 97; BMI 36.6
--- NOTE | 2023-05-14 12:17 | ED_ITS ---
HPI - General Adult General Chief complaint: Chest Pain Stated complaint: chest/stomach pain Time Seen by Provider: 05/14/23 17:37 History of Present Illness HPI narrative: 52-year-old female who reports a history of uterine fibroids, presents for evaluation of substernal chest pain. Patient states symptoms began at approximately 11:00 a.m. while she was sitting at table in her kitchen. She reports it as a burning sensation followed by pressure. Since that time and has nearly completely resolved. She reports having a history of similar symptoms in the past and was evaluated in the emergency department at that time with a negative workup. Currently she is asymptomatic. She denies any shortness of breath, nausea or vomiting. She denies any neck or jaw pain. No radiation of her symptoms. No epigastric pain. She denies any tobacco or alcohol use. She reports regular spicy foods. She does endorse increased stressful situations at home as she is attempting to clear out the belongings of her father. She does report family history of cardiac disease. She has not tried any medication for this. She denies any NSAID use. No caffeine or soda. Related Data Previous Rx's Medication Instructions Recorded meloxicam 15 mg tablet 15 mg PO DAILY #10 tabs 03/22/23 nitrofurantoin 100 mg PO Q12H 7 days #14 caps 03/23/23 monohydrate/macrocrystals 100 mg capsule (Macrobid) omeprazole 20 mg tablet,delayed 20 mg PO DAILY #14 tabs 05/14/23 release Allergies Allergy/AdvReac Type Severity Reaction Status Date / Time No Known Allergies Allergy Verified 05/14/23 12:19 Review of Systems 2 Constitutional: Constitutional: Denies chills, Denies fever(s) and Denies headache(s) Eyes: Eyes: Denies change in vision and Denies other (No redness.) ENT: Denies headache(s), Denies nasal congestion, Denies nasal discharge, Denies neck pain and Denies sore throat Cardiovascular: Cardiovascular: Reports chest pain, Denies palpitations, Denies dyspnea, Denies dyspnea on exertion and Denies orthopnea Respiratory: Respiratory: Denies cough, Denies dyspnea and Denies dyspnea on exertion Gastrointestinal: Gastrointestinal: Denies abdominal pain, Denies melena, Denies hematochezia, Denies diarrhea, Denies nausea and Denies vomiting Genitourinary: Genitourinary: Denies dysuria and Denies urinary urgency Musculoskeletal: Musculoskeletal: Denies back pain, Denies muscle weakness, Denies neck pain and Denies numbness Integumentary/Breasts: Skin/Breast: Denies rash Neurologic: Denies headache(s), Denies focal weakness and Denies numbness Psychiatric: Psychiatric: Denies depression Endocrine: Endocrine: Denies palpitations [facility] Past Medical History Attestation statement: The following information was validated with the patient. [facility] Narrative: Uterine fibroid Medical History Scabies Family History Family History Father CAD (coronary artery disease), Onset Age: 50 Mother Pacemaker Social History Social History Household Members Other:: lives with partner, 3 children (6, 13, 28), works for [employer], Housing: Apartment Patient Tobacco Use Status: Never used Tobacco e-Cigarette/Vaping Use: Never Used Advance Directives: No Advance Directives Information Provided: No service: No Current occupational status: employed Cognitive needs: No Hearing needs: No Vision needs: No Physical Exam ED Vital Signs: Vital Signs - 24 hr 05/14/23 12:17 05/14/23 15:07 05/14/23 17:40 Temperature 98.9 F 97.1 F 98.4 F Pulse Rate 80 75 77 Respiratory Rate 20 18 18 Blood Pressure 173/99 H 158/83 H 149/95 H Pulse Oximetry 97 100 99 Oxygen Delivery Method Room Air Room Air Room Air BMI result Body Mass Index 36.6 Const General: cooperative, alert, awake and Physically active Eyes General: appearance normal, both eyes and all related structures Resp Auscultation: clear to auscultation bilaterally, no rales, no rhonchi and no wheezes Cardio Rate: regular rate Rhythm: regular rhythm GI Other: abdomen is soft without any tenderness. No Peña's sign. No peritoneal sign. No CVAT. Extrem Other: No calf tenderness or pedal edema Course Course Course Narrative: This is an RME: Additional HPI, ROS, PE not included below will be deferred to primary provider. Patient is a 52-year-old female who presents to emergency department for evaluation of Substernal chest pain/burning sensation with onset 1 hour prior to arrival. Associated nausea vomiting diarrhea or shortness of breath. Sudden onset while at rest has been constant since its onset. Reports a history of similar pain in the past, reportedly thought to be secondary to anxiety. Medical Decision Making Medical Decision Making [facility] Narrative: 50-year-old female history of uterine fibroids, presents for evaluation of chest pressure and burning that began earlier today. Patient confirms history of previous with negative workup. Today labs including cardiac enzymes, EKG and chest x-ray are unremarkable. Low suspicion for cardiopulmonary process. Suspect possible GI source. Patient agreeable for trial of omeprazole. No indication for dissection, no risk factors for PE. Patient feels comfortable with discharge plan home and will follow-up with PCP. As an aside she is currently being followed by Dr. Ray for uterine fibroids. Differential Diagnosis Differential Diagnoses: The differential diagnosis associated with the presentation includes ACS Dyspepsia Pneumonia Costochondritis Esophagitis Admission/Observation Consideration of admission/observation: Escalation of care including admission/observation considered consideration for admission if medically warranted. Lab Data [facility] Lab Attestation statement: I reviewed the patient's lab results. 05/14/23 12:59 05/14/23 12:59 Labs: Lab Results 05/14/23 05/14/23 Range/Units 12:59 16:09 WBC 8.8 (4.8-10.8) X10*3/uL RBC 4.56 (4.20-5.50) X10*6/uL Hgb 14.0 (12.0-16.0) g/dl Hct 41.5 (37.0-47.0) % MCV 91.0 (80.0-98.0) fL MCH 30.7 (27.0-33.0) pg MCHC 33.7 (31.0-35.0) g/dl RDW 12.7 (11.0-16.0) % Plt Count 254 (160-400) X10*3/uL MPV 10.1 (9.4-12.3) fL Immature Gran % (Auto) 0.5 H (0.0-0.4) % Neut % (Auto) 66.4 (45-73) % Lymph % (Auto) 24.5 (20-40) % [place]aver % (Auto) 5.2 (2-11) % Eos % (Auto) 2.4 (0-4) % Baso % (Auto) 1.0 (0-2) % Lymph # (Auto) 2.2 (1.2-4.9) X10*3/uL [place] # (Auto) 0.5 (0.1-1.2) X10*3/uL Eos # (Auto) 0.2 (0.0-0.4) X10*3/uL Baso # (Auto) 0.1 (0.0-0.2) X10*3/uL Abs Immat Gran (auto) 0.04 H (0.00-0.03) X10*3/uL Absolute Neuts (auto) 5.8 (2.0-8.3) x10*3/uL Absolute Nucleated RBC 0.000 (0.0-0.012) X10*3/uL Nucleated RBC % (auto) 0.0 (0.0-0.2) /100WBC Sodium 139 (135-145) mmol/L Potassium 4.2 (3.3-5.1) mmol/L Chloride 106 (96-108) mmol/L Carbon Dioxide 25 (22-29) mmol/L Anion Gap 12 (12-20) BUN 14 (9-16) mg/dL Creatinine 0.74 (0.5-1.4) mg/dL Estim Creat Clear Calc 104.0 Estimated GFR > 60 Random Glucose 93 (60-115) mg/dL Calcium 9.4 (8.4-10.2) mg/dL Magnesium 2.2 (1.6-2.6) mg/dL Total Bilirubin 0.3 (0.0-1.0) mg/dL AST 15 (5-31) U/L ALT 14 (0-31) U/L Alkaline Phosphatase 71 (39-117) U/L Troponin I High Sens < 2.7 < 2.7 (<3.5-17.0) ng/L Total Protein 7.4 (6.5-8.0) g/dL Albumin 4.1 (3.5-5.0) g/dL Lipase 24 (8-78) U/L Independent Interpretation I performed an independent interpretation of an: EKG Radiology Impression Discussion of test interpretation with radiology: I have reviewed the radiologist's reading. Radiologist Impression: [id number] [place] [address] XRay Report Signed Patient: Jojo Miller MR#: [id number] : 1970 Acct:[id number] Age/Sex: 52 / F ADM Date: 05/14/23 Loc: HO.ED Attending Dr: Ordering Physician: Kelsey Morrell CNP Date of Service: 05/14/23 Procedure(s): XR chest 2V Accession Number(s): [id number] cc: Kelsey Morrell CNP; Louann Jones MD~ EXAMINATION: XR CHEST CLINICAL INFORMATION: Chest pain COMPARISON: None available. TECHNIQUE: 2 views of the chest were obtained. FINDINGS: No significant abnormality is noted involving the heart, lungs, mediastinum, bony thorax or soft tissues. XR/XR chest 2V IMPRESSION: Unremarkable chest examination. Dictated By: Ugo Soto MD Signed By: <Electronically signed by Ugo Soto MD in OV> 05/14/23 1322 DD/ 1245 TD/TT: Ballroom Dance Instructor: TAMMY External Record Review External record reviewed: Inpatient record Prescription Management I considered prescription management with: Other Discharge Plan Discharge Clinical Impression: Chest pain Qualifiers: Chest pain type: unspecified Qualified Code(s): R07.9 - Chest pain, unspecified Patient Disposition: Home, Self-Care Instructions: Chest Pain (ED) Additional Instructions: omeprazole as directed. [place] diet. Avoid spicy foods for the time being. Follow-up with your primary care provider. Call this week to schedule a follow-up appointment. Return to the emergency department if you have any worsening of symptoms, or any concerns. Get well soon! Prescriptions: New omeprazole 20 mg tablet,delayed release (DR/EC) 20 mg PO DAILY Qty: 14 0RF No Action nitrofurantoin monohyd/m-cryst [Macrobid] 100 mg capsule 100 mg PO Q12H 7 Days Qty: 14 0RF Rx Instructions: must administer with a meal/food meloxicam 15 mg tablet 15 mg PO DAILY Qty: 10 0RF
[2023-05-14 13:04] LABS: MANUAL DIFF FLAG NO
[2023-05-14 13:05] LABS: Basophils Absolute Auto 0.1 X10*3/uL (0.0-0.2); Eosinophils Absolute Auto 0.2 X10*3/uL (0.0-0.4); Eosinophils Percent Auto 2.4 % (0-4); Hematocrit 41.5 % (37.0-47.0); Imm Gran Abs Auto 0.04 X10*3/uL (0.00-0.03); Imm Gran Pct Auto 0.5 % (0.0-0.4); Lymphocytes Absolute Auto 2.2 X10*3/uL (1.2-4.9); Lymphocytes Percent Auto 24.5 % (20-40); Mean Corpuscular HGB Conc 33.7 g/dl (31.0-35.0); Mean Corpuscular Hemoglobin 30.7 pg (27.0-33.0); Mean Platelet Volume 10.1 fL (9.4-12.3); Monocytes Absolute Auto 0.5 X10*3/uL (0.1-1.2); Monocytes Percent Auto 5.2 % (2-11); Neutrophils Absolute Auto 5.8 x10*3/uL (2.0-8.3); Neutrophils Percent Auto 66.4 % (45-73); Platelet Count 254 X10*3/uL (160-400); Red Blood Count 4.56 X10*6/uL (4.20-5.50); Red Cell Distribution Width 12.7 % (11.0-16.0); White Blood Count 8.8 X10*3/uL (4.8-10.8)
[2023-05-14 13:22] LABS: Alanine Aminotransferase 14 U/L (0-31); Albumin Level 4.1 g/dL (3.5-5.0); Alkaline Phosphatase 71 U/L (39-117); Anion Gap 12 (12-20); Aspartate Amino Transferase 15 U/L (5-31); Bilirubin Total 0.3 mg/dL (0.0-1.0); Blood Urea Nitrogen 14 mg/dL (9-16); Calcium 9.4 mg/dL (8.4-10.2); Carbon Dioxide 25 mmol/L (22-29); Chloride 106 mmol/L (96-108); Estimated Glomerular Filt Rate > 60; Glucose Random 93 mg/dL (60-115); Lipase 24 U/L (8-78); Magnesium 2.2 mg/dL (1.6-2.6); Potassium 4.2 mmol/L (3.3-5.1); Sodium 139 mmol/L (135-145); Total Protein 7.4 g/dL (6.5-8.0)
[2023-05-14 13:30] LABS: Troponin-I High Sensitivity < 2.7 ng/L (<3.5-17.0)
[2023-05-14 15:07] VITALS: BP 158/83; PULSE 75; RESP 18; TEMP 36.2; O2SAT 100
[2023-05-14 16:43] LABS: Troponin-I High Sensitivity < 2.7 ng/L (<3.5-17.0)
[2023-05-14 17:40] VITALS: BP 149/95; PULSE 77; RESP 18; TEMP 36.9; O2SAT 99
== END 2023-05-14 18:39 | disposition home or self-care (01) ==
PROVIDERS: Nurse Practitioner Family; Emergency Provider Student in an Organized Health Care Education/Training Program; PCP Internal Medicine
DX: R05.9 Cough, unspecified (principal); Z79.899 Other long term (current) drug therapy
CPT/HCPCS: 36415; 71046; 80053; 83690; 83735; 84484; 85025; 93005; 99283

== ENCOUNTER → 2023-05-14 12:05 | Outpatient (BNV) | payer OTHER, SELFPAY | PROVIDERS: Emergency Provider Student in an Organized Health Care Education/Training Program; PCP Internal Medicine; Visit Provider Internal Medicine | DX: R94.31 Abnormal electrocardiogram [ECG] [EKG] (principal) | CPT/HCPCS: 93010 ==

== ENCOUNTER 2023-05-25 08:04 | Outpatient (AMB) | payer OTHER, SELFPAY ==
--- NOTE | 2023-05-25 08:24 | MHC.OFFVIS ---
Intake Vital Signs 05/25/23 08:26 Height 5 ft 5 in Weight 220 lb BMI 36.6 BP 144/69 H Blood Pressure Location Rt brachial Position Sitting Pulse 66 Pulse Source Monitor Intake Visit Reasons: Colonoscopy screening Intake Note: Patient states shes having random stomach pains, nausea as well has been going on for about a year. Orchestrator Required: No Accompanied by: Self / Same As Patient Allergies No Known Allergies Allergy (Verified 05/25/23 08:28) HPI Colonoscopy screening HPI Details 52-year-old female here for preprocedural meeting to discuss a screening colonoscopy. She is referred by Dr. Jones of [facility] primary care. PMX Scabies Tennis elbow Pelvic mass Degenerative disc disease of the lumbar spine motion sickness/nausea and vomiting Uterine fibroids * SURGICAL HISTORY section x2 Bilateral tubal ligation * ALLERGIES: NKDA * [place] LABS: Laboratory Tests 03/06/23 05/14/23 05/14/23 10:52 12:59 12:59 WBC 8.8 Hgb 14.0 Hct 41.5 Plt Count 254 Estimated GFR > 60 Total Bilirubin 0.3 AST 15 ALT 14 Alkaline Phosphata se 71 Lipase 24 TSH 1.16 TODAY'S VISIT This is her first colonoscopy. She has a hx of with she calls motion sickness with unexpected nausea and vomiting that has landed her in the ER. It tends to happen when she is driving to work. she will have to open the window because she feels very stuffy. It happens once a week. The timing is very inconsistent, however. She will at times have chest pains with a negative cardiac work up in the ER. The CP started as burning then felt like a pressure. She denies any HB, and says she really likes to eat spicy foods and you will never get me to stop this, I love spicy foods. She will have what she calls dyspepsia if she eats beef. No dysphagia. She denies vertigo but she does have migraines that seem to be scent driven. She can not tolerate bleach, menthol smells, etc. There is no FHX of stomach or esophageal cancer. She has no bowel problems. There are no prior problems with anesthesia or sedation. She denies any cardiac or respiratory problems. There is no FHX of crc or polyps. Her nausea and vomiting really does not sound like it is organic to the GI system since it has not tied to eating or bowel movement. She does suffer from severe migraines and it is possible that this is an atypical migraine presentation. Until we get the EGD/colonoscopy back I am going to put her on famotidine at night to see if this helps at all. I also asked her when she has the nausea and vomiting to try to take her usual medication that would abortive migraine to see if this makes a difference. Return office visit after the procedures per patient request [facility] Medical History (Updated 05/25/23 @ 08:59 by BONITA Bryant) Scabies Surgical History (Updated 05/18/23 @ 07:52 by BONITA Bryant) History of tubal ligation History of section Family History Father CAD (coronary artery disease), Onset Age: 50 Mother Pacemaker Social History Household Members Other:: lives with partner, 3 children (6, 13, 28), works for [employer], Housing: Apartment Patient Tobacco Use Status: Never used Tobacco e-Cigarette/Vaping Use: Never Used service: No Current occupational status: employed Cognitive needs: No Hearing needs: No Vision needs: No Review of Systems Const Denies fatigue, Denies fever(s), Denies night sweats, Denies poor appetite and Denies weight loss ENT Reports Normal hearing present, Denies dental pain, Denies dysphagia, Denies hearing loss, Denies mouth pain, Denies odynophagia, Denies throat swelling, Denies tongue swelling and Reports other (Dentition adequate) Card Reports no additional complaints Resp Reports no additional complaints GI Details: Denies abdominal pain, Denies melena, Denies bloating, Denies hematochezia, Denies constipation, Denies GI cramping, Denies dysphagia, Denies excessive flatus, Denies early satiety, Denies heartburn, Denies diarrhea, Reports nausea, Denies odynophagia, Reports vomiting and Denies hematemesis Skin/Breast Denies pruritus, Denies lesions, Denies rash and Denies jaundice Neuro Reports Normal hearing present and Denies Abnormal speech present Endo Denies fatigue Aller/Immun Denies throat swelling and Denies tongue swelling Physical Exam Vital Signs: Last Vital Signs Pulse 66 05/25/23 08:26 BP 144/69 H 05/25/23 08:26 BMI result Body Mass Index 36.6 Const General: cooperative, no acute distress, well developed and well groomed Nutritional Appearance: well nourished and obese morbidly obese Orientation/consciousness: oriented to person, oriented to place and oriented to time Limitations: No language barrier HEENT Head: Yes normocephalic and Yes atraumatic Eyes General: appearance normal, both eyes and all related structures Pupils: Equal, round and reactive pupils present Neck Neck: Yes normal visual inspection and Yes no lymphadenopathy Thyroid: Thyroid normal Resp Effort & Inspection: normal respiratory effort and able to speak in complete sentences Auscultation: clear to auscultation bilaterally Cardio Rate: regular rate Rhythm: regular rhythm Heart sounds: Normal, physiologic split S2 sound present Peripheral pulses: radial pulses present and posterior tibial pulses present GI Inspection: No distended, Yes Abdominal panniculus present, Yes obesity, Yes scar and Yes striae Palpation (GI): Soft to palpation, nontender, no guarding, not rigid and No hepatosplenomegaly present Percussion: Yes normal to percussion Auscultation: normal bowel sounds Rectal Exam - Female: deferred Abdomen image: 1. Surgical scar Skin Other: bruise on left elbow General skin exam: turgor normal, skin not dry, no jaundice, No spider nevi and no striae Rashes: no rashes Nails: normal Neuro General: oriented to person, oriented to place and oriented to time Cranial nerves: Yes Equal, round and reactive pupils present and Yes Normal hearing present Speech: No Abnormal speech present Extrem General: Yes normal to inspection, No clubbing, No cyanosis and Yes edema (left foot s/p injury) Psych Appearance: grossly normal and well kempt Mental Status: mental status grossly normal Speech and movement: Normal speech and movement present Affect: normal affect Attitude: cooperative Thought process: Normal thought process present and not confabulating Thought content: Normal thought content present Insight: Fair insight present (Psych) and Limited insight present (Psych) Judgement: Fair judgement present (Psych) and Limited judgement present (Psych) Assessment & Plan Assessment & Plan (1) Pre-op examination: Code(s): Z01.818 - Encounter for other preprocedural examination (2) Nausea and vomiting: Code(s): R11.2 - Nausea with vomiting, unspecified (3) GERD (gastroesophageal reflux disease): Code(s): K21.9 - Gastro-esophageal reflux disease without esophagitis Plan This is her first colonoscopy. She has a hx of with she calls motion sickness with unexpected nausea and vomiting that has landed her in the ER. It tends to happen when she is driving to work. she will have to open the window because she feels very stuffy. It happens once a week. The timing is very inconsistent, however. She will at times have chest pains with a negative cardiac work up in the ER. The CP started as burning then felt like a pressure. She denies any HB, and says she really likes to eat spicy foods and you will never get me to stop this, I love spicy foods. She will have what she calls dyspepsia if she eats beef. No dysphagia. She denies vertigo but she does have migraines that seem to be scent driven. She can not tolerate bleach, menthol smells, etc. There is no FHX of stomach or esophageal cancer. She has no bowel problems. There are no prior problems with anesthesia or sedation. She denies any cardiac or respiratory problems. There is no FHX of crc or polyps. Her nausea and vomiting really does not sound like it is organic to the GI system since it has not tied to eating or bowel movement. She does suffer from severe migraines and it is possible that this is an atypical migraine presentation. Until we get the EGD/colonoscopy back I am going to put her on famotidine at night to see if this helps at all. I also asked her when she has the nausea and vomiting to try to take her usual medication that would abortive migraine to see if this makes a difference. Return office visit after the procedures per patient request Orders: Orders EGD/[place] Combo - GI Use Only Today R11.2 - Nausea with vomiting, unspecified Medications: New sodium,potassium,mag sulfates 17.5-3.13-1.6 gram (Suprep Bowel Prep Kit) 480 mL orally; 354 mL 0RF famotidine (Pepcid) 40 mg PO BEDTIME 60 tabs 6RF K21.9 - Gastro-esophageal reflux disease without esophagitis Coding Level of Care Code New Pt Level 3 (08342) Diagnoses Pre-op examination Z01.818 Nausea and vomiting R11.2 GERD (gastroesophageal reflux disease) K21.9
[2023-05-25 08:26] VITALS: BP 144/69; PULSE 66; BMI 36.6
== END 2023-05-25 09:06 | disposition home or self-care (01) ==
PROVIDERS: PCP Internal Medicine; Visit Provider Nurse Practitioner
DX: Z01.818 Encounter for other preprocedural examination (principal); R11.2 Nausea with vomiting, unspecified; K21.9 Gastro-esophageal reflux disease without esophagitis
CPT/HCPCS: 99203

== ENCOUNTER → 2023-05-25 08:04 | Outpatient (BNVA) | payer OTHER, SELFPAY | PROVIDERS: PCP Internal Medicine; Visit Provider Nurse Practitioner | DX: Z01.818 Encounter for other preprocedural examination (principal); K21.9 Gastro-esophageal reflux disease without esophagitis; R11.2 Nausea with vomiting, unspecified | CPT/HCPCS: 99202 ==

== ENCOUNTER 2023-06-16 13:11 | Outpatient (REF) | payer OTHER, SELFPAY ==
[2023-06-16 14:47] LABS: Hematocrit 40.7 % (37.0-47.0); Hemoglobin 13.5 g/dl (12.0-16.0); Mean Corpuscular HGB Conc 33.2 g/dl (31.0-35.0); Mean Corpuscular Hemoglobin 29.9 pg (27.0-33.0); Platelet Count 250 X10*3/uL (160-400); Red Blood Count 4.52 X10*6/uL (4.20-5.50); Red Cell Distribution Width 12.5 % (11.0-16.0); White Blood Count 6.6 X10*3/uL (4.8-10.8)
[2023-06-16 15:52] LABS: HCG Quantitative < 2 mIU/mL; TSH reflex Free T4 1.88 uIU/mL (0.32-4.0)
[2023-06-16 17:17] LABS: CT PCR NOT DETECTED (Not Detect.); NG PCR NOT DETECTED (Not Detect.)
[2023-06-16 17:35] LABS: Appearance Urine Clear; Color Urine Yellow; Glucose Urine UA Negative (Negative); Leukocyte Esterase Urine Negative (Negative); Nitrite Urine Negative (Negative); PH 5.5 (5.0-9.0); Specific Gravity - Urine 1.025 (1.005-1.025); UMIC TRIGGER UACC YES; Urine Blood Small (1+) (Negative); Urine Ketones Negative (Negative); Urine Protein Negative (Neg-Trace)
[2023-06-16 17:57] LABS: Bacteria Urine None Seen (None Seen); Hyaline Casts Urine 0-2 /LPF (0-2); UACC Culture Trigger YES
[2023-06-16 17:58] LABS: WBC Urine 0-5 /HPF (0-5)
[2023-06-17 19:49] LABS: Follicle Stimulating Hormone 51.1 mIU/mL
== END 2023-06-16 13:12 | disposition home or self-care (01) ==
LOC: HO.LAB 13:11
PROVIDERS: PCP Internal Medicine; Visit Provider Obstetrics & Gynecology
DX: Z01.419 Encounter for gynecological examination (general) (routine) without abnormal findings (principal); N93.9 Abnormal uterine and vaginal bleeding, unspecified
CPT/HCPCS: 0353U; 36415; 58100; 81001; 83001; 83002; 84146; 84443; 84702; 85027; 87086; 99202

== ENCOUNTER 2023-06-16 13:11 | Outpatient (AMB) | payer OTHER, SELFPAY ==
--- NOTE | 2023-06-16 13:40 | MHC.OFFVIS ---
Intake Vital Signs 06/16/23 13:42 Height 5 ft 5 in Weight 217 lb BMI 36.1 BP 130/80 Intake Visit Reasons: [employer] Annual/PCP Ref Intake Note: pt here to discuss fibroids, had pap with Dr Jones Weld Technician: Weld Technician Present (Stephanie) Allergies No Known Allergies Allergy (Verified 06/16/23 13:40) HPI HPI Comments History of Present Illness Details Presenting referred from PCP regarding irregular menstrual cycles associated with passage of blood clots and pelvic cramping Last Pap/HPV was negative in 03/27 Last Mammogram was BI-RADS 1 in 04/28 Ultrasound was recently done [facility] Medical History GERD (gastroesophageal reflux disease) Lumbar degenerative disc disease Tennis elbow Scabies Surgical History History of tubal ligation History of section Family History Father CAD (coronary artery disease), Onset Age: 50 Mother Pacemaker Social History Household Members Other:: lives with partner, 3 children (6, 13, 28), works for [employer], Housing: Apartment Patient Tobacco Use Status: Never used Tobacco e-Cigarette/Vaping Use: Never Used service: No Current occupational status: employed Cognitive needs: No Hearing needs: No Vision needs: No Female Reproductive History Menstrual control method: permanent sterilization Permanent Sterilization: BTL Total pregnancies: 4 Full term: 3 Number of Living Children: 3 Ab spontaneous: 1 Date of last pap smear: 03/05/23 (neg pap and hpv) Date of Mammogram: 04/16/23 Review of Systems Const All systems reviewed & are unremarkable except as noted in HPI and below Card Reports as per HPI Resp Reports as per HPI GI Reports as per HPI and Reports no additional complaints Reports as per HPI Physical Exam Vital Signs: Last Vital Signs BP 130/80 06/16/23 13:42 BMI result Body Mass Index 36.1 Const General: cooperative, healthy appearing and comfortable Chest Chest palpation & inspection: normal inspection of the chest and normal palpation of entire chest wall Breast/axilla inspection: normal inspection of the breasts and normal inspection of the axillae Breast/axilla palpation: normal palpation of the breasts, normal palpation of the axillae and no axillary lymphadenopathy Resp Effort & Inspection: normal respiratory effort Auscultation: clear to auscultation bilaterally Percussion: percussion normal Cardio Palpation: normal PMI Rate: regular rate Rhythm: regular rhythm Heart sounds: no murmurs and no rubs Peripheral pulses: Peripheral pulses 2+ throughout GI Inspection: Yes normal to inspection Palpation (GI): Soft to palpation, nontender, no guarding, not rigid and No hepatosplenomegaly present Percussion: Yes normal to percussion Auscultation: normal bowel sounds Rectal Exam - Female: deferred General: Yes bladder normal to palpation External Female Exam: No lesion Speculum Exam - Vagina: normal appearance of the vagina, normal palpation, normal vaginal discharge and not erythematous Speculum Exam - Cervix: normal appearance of the cervix and normal palpation Bimanual exam- vagina & uterus: normal bimanual exam, normal palpation, uterine size normal, bladder normal to palpation, consistency normal and normal palpation Bimanual Exam- Adnexa, other: normal adnexae, no masses and no tenderness Office Procedures Endometrial Biopsy Details: The patient was counseled regarding the indication and benefits of endometrial sampling to rule out endometrial pathology including not limited to endometrial hyperplasia or endometrial cancer and others; The alternatives (Either do nothing vs. hysteroscopy D&C) & the risks were discussed with the patient including but not limited: pain, uterine perforation, bleeding, infection, possible injury to bladder, bowel, ureter, possible need for blood transfusion with all its possible risks. The patient verbalized understanding all questions answered and signed consent. The patient was placed into the dorsal lithotomy position; a speculum was inserted in the vagina. Using aseptic technique for the procedure, the cervix was cleansed with Betadine. The anterior lip of the cervix was grasped with a single tooth tenaculum. The uterus was sounded to 7 cm with a 4 mm Pipelle was used. Tissues samples were obtained and placed in formalin, in a patient labeled container and sent to the pathology department. At the end of the procedure, there was minimal bleeding noted The patient tolerated the procedure well and was discharged in good condition with the following instructions: Nothing in the vagina until the bleeding stops. No sex until the bleeding stops, to call if any of the following occurs: fever (>100.4), flu-like symptoms, abdominal pain, heavy bleeding, four smelling vaginal discharge. The patient was instructed to schedule a Follow up appointment in 2 weeks to discuss pathology results of the biopsy and treatment options. This note was generated with a voice recognition program. Some errors may have been overlooked during the review of this note. Sometimes these errors may affect the content or meaning of a given sentence. [id number] Biopsy Assessment & Plan Assessment & Plan (1) Abnormal uterine bleeding: Code(s): N93.9 - Abnormal uterine and vaginal bleeding, unspecified Plan: Co testing and pelvic ultrasound recently done r, GC and chlamydia taken will order CBC, prolactin, TSH, HCG, FSH/LH. Discussed with the patient the different causes of abnormal bleeding including thyroid disorders, uterine and ovarian pathology, endometrial hyperplasia, carcinoma and other potential causes. Discussed with the patient the work up including CBC (to r/o anemia), TSH, prolactin, FSH/LH , endometrial biopsy to r/o endometrial pathology. EMB done, see procedure note All questions answered and the patient verbalized understanding. Instructed the patient to schedule a follow-up appointmentin 2 weeks. Orders: Orders AMB Endometrial Biopsy Today N93.9 - Abnormal uterine and vaginal bleeding, unspecified Complete Blood Count no Diff Today N93.9 - Abnormal uterine and vaginal bleeding, unspecified Lutenizing Hormone Today N93.9 - Abnormal uterine and vaginal bleeding, unspecified Surgical Today N93.9 - Abnormal uterine and vaginal bleeding, unspecified CT NG by PCR Today N93.9 - Abnormal uterine and vaginal bleeding, unspecified Prolactin Today N93.9 - Abnormal uterine and vaginal bleeding, unspecified HCG Quantitative Today N93.9 - Abnormal uterine and vaginal bleeding, unspecified TSH reflex Free T4 Today N93.9 - Abnormal uterine and vaginal bleeding, unspecified Follicle Stimulating Hormone Today N93.9 - Abnormal uterine and vaginal bleeding, unspecified Coding Level of Care Code New Pt Level 3 (36846) Procedure Only Diagnoses Abnormal uterine bleeding N93.9 CPT Codes Endometrial Biopsy - CPT: 07265-[id number] Biopsy ([id number])
[2023-06-16 13:42] VITALS: BP 130/80; BMI 36.1
== END 2023-06-16 14:10 | disposition home or self-care (01) ==
PROVIDERS: PCP Internal Medicine; Visit Provider Obstetrics & Gynecology
DX: N92.6 Irregular menstruation, unspecified (principal); N93.9 Abnormal uterine and vaginal bleeding, unspecified
CPT/HCPCS: 58100; 99203

== ENCOUNTER 2023-06-16 14:29 | Outpatient (REF) | payer OTHER, SELFPAY | END 2023-06-16 14:30 | disposition home or self-care (01) | LOC: HO.LNP 14:29 | PROVIDERS: Visit Provider Obstetrics & Gynecology | DX: N93.9 Abnormal uterine and vaginal bleeding, unspecified (principal); R30.0 Dysuria; R10.2 Pelvic and perineal pain | CPT/HCPCS: 88305 ==

== ENCOUNTER 2023-06-18 13:13 | Day surgery (SDC) | payer OTHER, SELFPAY ==
--- NOTE | 2023-06-18 13:14 | HO.ANESPROP2 ---
[facility] Active Problems Active Problems: All Active Problems (Updated 06/16/23 @ 14:03 by Timoteo Ray MD) Abnormal uterine bleeding (Acute) Well woman exam (Acute) Nausea and vomiting (Acute) Pre-op examination (Acute) Dysuria (Acute) Pelvic mass (Acute) Pelvic pain (Acute) Annual physical exam (Acute) Contact dermatitis (Acute) Tennis elbow (Acute) Lumbar degenerative disc disease (Acute) GERD (gastroesophageal reflux disease) (Acute) Past Medical History Medical History (Updated 06/16/23 @ 14:03 by Timoteo Ray MD) GERD (gastroesophageal reflux disease) Lumbar degenerative disc disease Tennis elbow Scabies Family History Family History Father CAD (coronary artery disease), Onset Age: 50 Mother Pacemaker Family history of problems with anesthesia: No Surgical History Surgical History (Updated 06/17/23 @ 11:48 by Mary Alice Booth RN) History of tubal ligation History of section History of Problems with Anesthesia: No Social History Social History Household Members Other:: lives with partner, 3 children (6, 13, 28), works for [employer], Housing: Apartment Patient Tobacco Use Status: Never used Tobacco e-Cigarette/Vaping Use: Never Used Advance Directives: No Advance Directives Information Provided: Yes service: No Current occupational status: employed Cognitive needs: No Hearing needs: No Vision needs: No Meds Allergies Allergy/AdvReac Type Severity Reaction Status Date / Time No Known Allergies Allergy Verified 06/16/23 13:40 Active Medications: Current Medications Lactated Ringer's (Lr) 1,000 mls @ 50 mls/hr IVCONT .Q20H KODAK Exam Airway Mallampati Class: II (top all implants) TM Dist: >3cm Neck ROM: Full Heart: rrr Lungs: cta Assessment and Plan Assessment Anesthesia Assessment: Anesthesia Plan Discussed and Chart Reviewed Final Anesthetic Review Family History of Problems with Anesthesia: No History of Problems with Anesthesia: No NPO: Yes ASA Class: II Final Preanesthetic Review: No Changes in Pt Med Stat, Meds/Allgs Chart Reviewed and Consent Obtained/Reviewed Patient Risk: Low Procedure Risk: Intermediate Anesthetic Plan Anesthetic Plan: MAC: Disposition: Standard PACU
[2023-06-18 13:24] VITALS: BP 169/101; PULSE 75; RESP 20; TEMP 36.6; O2SAT 99
[2023-06-18 13:28] VITALS: BMI 36.6
[2023-06-18 13:36] VITALS: BP 129/69
--- NOTE | 2023-06-18 13:42 | P.CONAN_ITS ---
[facility] Active Problems Active Problems: All Active Problems (Updated 06/16/23 @ 14:03 by Timoteo Ray MD) Abnormal uterine bleeding (Acute) Well woman exam (Acute) Nausea and vomiting (Acute) Pre-op examination (Acute) Dysuria (Acute) Pelvic mass (Acute) Pelvic pain (Acute) Annual physical exam (Acute) Contact dermatitis (Acute) Tennis elbow (Acute) Lumbar degenerative disc disease (Acute) GERD (gastroesophageal reflux disease) (Acute) Past Medical History Medical History (Updated 06/16/23 @ 14:03 by Timoteo Ray MD) GERD (gastroesophageal reflux disease) Lumbar degenerative disc disease Tennis elbow Scabies Family History Family History Father CAD (coronary artery disease), Onset Age: 50 Mother Pacemaker Family history of problems with anesthesia: No Surgical History Surgical History (Updated 06/17/23 @ 11:48 by Mary Alice Booth RN) History of tubal ligation History of section History of Problems with Anesthesia: No Social History Social History Household Members Other:: lives with partner, 3 children (6, 13, 28), works for [employer], Housing: Apartment Patient Tobacco Use Status: Never used Tobacco e-Cigarette/Vaping Use: Never Used service: No Current occupational status: employed Cognitive needs: No Hearing needs: No Vision needs: No Meds Allergies Allergy/AdvReac Type Severity Reaction Status Date / Time No Known Allergies Allergy Verified 06/16/23 13:40 Active Medications: Current Medications Lactated Ringer's (Lr) 1,000 mls @ 50 mls/hr IVCONT .Q20H KODAK Exam Height,Weight and Vital Signs: Height 5 ft 5 in Weight 99.79 kg Last Vital Signs Temp 98 F 06/18/23 13:24 Pulse 75 06/18/23 13:24 Resp 20 06/18/23 13:24 BP 129/69 06/18/23 13:36 Pulse Ox 99 06/18/23 13:24 O2 Del Method Room Air 06/18/23 13:24 Airway Mallampati Class: II TM Dist: >3cm Neck ROM: Full Partial: Upper Heart: rrr Lungs: cta Assessment and Plan Assessment Anesthesia Assessment: Anesthesia Plan Discussed and Chart Reviewed Final Anesthetic Review Family History of Problems with Anesthesia: No History of Problems with Anesthesia: No NPO: Yes ASA Class: II Final Preanesthetic Review: No Changes in Pt Med Stat, Meds/Allgs Chart Reviewed and Consent Obtained/Reviewed Patient Risk: Low Procedure Risk: Intermediate Anesthetic Plan Anesthetic Plan: MAC: Disposition: Standard PACU
[2023-06-18] MEDS: Lactated Ringers 1,000 ML 50 ML IVCONT (13:43)
--- NOTE | 2023-06-18 14:13 | MHC.SHP ---
Pre-Procedural Eval Section A - 24 Hr Update-Section A only Date of Service: 06/18/23 The patient is an INPATIENT: No Changes since office visit: Yes Patient answered all questions; No Cold of Flu in the past 2 weeks, No New Medical Problems and No Changes in Medication The patient has been examined within 24 hours of the surgical procedure. The History & Physical has been completed within 30 days and I have reviewed it.: Yes Section B - Complete if H&P > 30 days Chief Complaint: Colon cancer screen, nausea and vomiting Allergies: Allergies Allergy/AdvReac Type Severity Reaction Status Date / Time No Known Allergies Allergy Verified 06/16/23 13:40 Exam Surgical H&P Exam: Normal: Heart, Normal: Lungs and Normal: Extremities Plan Diagnosis/Plan: Unchanged I have reviewed the history and physical and performed a pertinent physical examination on my patient. No changes have occurred unless specified. Time Spent With Patient Time: Total time managing care of this patient today ____ minutes.
--- NOTE | 2023-06-18 14:19 | W.PM.OPN ---
Operative Note Operative Note Date of Service: 06/18/23 Narrative: FLEXIBLE TRANSORAL UPPER GASTROINTESTINAL ENDOSCOPY WITH BIOPSIES AND COLONOSCOPY TILL CECUM WITH BIOPSIES Pre-op diagnosis: Colon cancer screening, intermittent nausea and vomiting, atypical chest pain Post-op diagnosis: GERD, Gastritis, Colon Polyps, hemorrhoids Endoscopist:? Placido Peters MD Anesthesia:?MAC UPPER ENDOSCOPY Consent: Indications for the procedure and potential complications of bleeding, perforation, reaction to medications and missed diagnosis were discussed with the patient and informed consent was obtained. Instrument: Olympus GIF H 190 mid size upper endoscope Monitoring: Vital signs and clinical assessment, continuous EKG monitoring, Pulse oximetry, Carbon Dioxide monitoring and blood pressure monitoring were done throughout the procedure. Procedure: The patient was placed in the left lateral decubitis position and pre-procedure medications were administered and a bite block was placed. The endoscope was inserted into the mouth and advanced under direct vision to the third part of duodenum. A careful inspection was made as the upper endoscope was withdrawn including a retroflexed examination of the proximal stomach; Findings and interventions are described below. Findings: Larynx: Normal Esophagus: Tortuous esophagus with increased tertiary contractions without stricture or ring. GE junction at 40 cms. Irregular Z line - biopsied to check for Cano's. Stomach: Moderate diffuse gastric erythema - biopsies were obtained from the antrum. Grade 2 flap valve on retroflexed examination of the cardia. Duodenum: Normal bulb and descending duodenum Biopsies were obtained from descending duodenum to check for celiac sprue Intervention: Biopsies as noted above COLONOSCOPY PROCEDURE NOTE Instrument: Olympus PCF H 190 L variable stiffness pediatric colonoscope Monitoring: Vital signs and clinical assessment, intermittent blood pressure monitoring, continuous EKG monitoring, Pulse oximetry and Carbon Dioxide monitoring were done throughout the procedure. Please see anesthesia flowsheet. Colon withdrawl time was 20 minutes. Procedure: The patient was placed in the left lateral decubitis position and pre-procedure medications were administered. After a digital rectal examination of the ano-rectum, the video colonoscope was inserted into the rectum and advanced through the colon to the cecum. The colonoscope was slowly withdrawn in a retrograde panoramic fashion and the colon mucosa was carefully examined including a retroflexed view of the rectum. Findings and interventions are described below. Procedure Difficulty: Colon was long and redundant and there was recurrent loop formation. Patient was placed in the supine position and left lower quadrant pressure was applied to intubate the transverse colon Findings: Terminal Ileum: Not evaluated Cecum: Normal Ascending Colon: Normal Transverse Colon: A 4-5 mm sessile polyp - removed with a cold biopsy. Descending Colon: Normal Sigmoid Colon: Normal Rectum: A 4-5 mm diminutive appearing polyp - removed with a cold biopsy Ano-rectum: Small internal hemorrhoids Colon preparation: Excellent. [place] Bowel Preparation Scale Right colon; 3 Transverse colon: 3 Left colon; 3 (0 = Unprepared colon segment with mucosa not seen due to solid stool that cannot be cleared. 1 = Portion of mucosa of the colon segment seen, but other areas of the colon segment not well seen due to staining, residual stool and/or opaque liquid. 2 = Minor amount of residual staining, small fragments of stool and/or opaque liquid, but mucosa of colon segment seen well. 3 = Entire mucosa of colon segment seen well with no residual staining, small fragments of stool or opaque liquid) Impression and Post Procedure Diagnosis: Endoscopy Findings: ESOPHAGUS: Tortuous esophagus with increased tertiary contractions without stricture or ring. GE junction at 40 cms. Irregular Z line - biopsied to check for Cano's. STOMACH: Gastritis DUODENUM: Normal - biopsied to check for celiac sprue Colonoscopy Findings: Two small polyps were removed Small hemorrhoids on retroflexed exam. Plan: Pt has a FU appointment on 07/02/23 with [place] Artis NP Repeat Colonoscopy in 5 years if polyps are adenomatous and 10 year if polyps are hyperplastic. (needs adult colonoscope for future colonoscopies). Above findings were reviewed with the patient and relevant handouts were given and the discharge area.
[2023-06-18 15:16] VITALS: BP 129/61; PULSE 73; RESP 16; TEMP 36.6; O2SAT 100
[2023-06-18 15:31] VITALS: BP 139/92; PULSE 70; RESP 15; TEMP 36.1; O2SAT 96
[2023-06-18 15:46] VITALS: BP 135/95; PULSE 72; RESP 16; TEMP 36.2; O2SAT 97
== END 2023-06-18 15:50 | disposition home or self-care (01) ==
PROVIDERS: PCP Internal Medicine; Visit Provider Internal Medicine Gastroenterology
PROC: (CPT 45380; principal; 2023-06-18 15:00)
DX: Z12.11 Encounter for screening for malignant neoplasm of colon (principal); K63.5 Polyp of colon; K62.1 Rectal polyp; K57.30 Diverticulosis of large intestine without perforation or abscess without bleeding; K64.8 Other hemorrhoids; K21.9 Gastro-esophageal reflux disease without esophagitis; K29.50 Unspecified chronic gastritis without bleeding; R07.89 Other chest pain
CPT/HCPCS: 45380; 43239; 88305; 88313; 88342; J2704

== ENCOUNTER → 2023-06-18 13:13 | Outpatient (BNV) | payer OTHER, SELFPAY | PROVIDERS: PCP Internal Medicine; Visit Provider Internal Medicine Gastroenterology | DX: Z12.11 Encounter for screening for malignant neoplasm of colon (principal); K63.5 Polyp of colon; K62.1 Rectal polyp; K64.8 Other hemorrhoids; R11.2 Nausea with vomiting, unspecified; K21.9 Gastro-esophageal reflux disease without esophagitis; K29.70 Gastritis, unspecified, without bleeding | CPT/HCPCS: 43239; 45380 ==

== ENCOUNTER 2023-07-02 13:28 | Outpatient (AMB) | payer OTHER, SELFPAY ==
--- NOTE | 2023-07-02 13:43 | A.OFFVIS_ITS ---
Intake Vital Signs 07/02/23 13:58 Height 5 ft 5 in Weight 219 lb 2.232 oz BMI 36.5 BP 154/96 H Blood Pressure Location Rt brachial Position Sitting Pulse 79 Intake Visit Reasons: s/p eg/colon Intake Note: Patient in office today in follow up of EGD and colonoscopy. CC: Patient reports she continues to have nausea sometimes. Patient not taking medication. Display Screen Fabricator Required: No Accompanied by: Self / Same As Patient Allergies No Known Allergies Allergy (Verified 07/02/23 14:03) HPI s/p eg/colon HPI Details Assessment & Plan (1) Pre-op examination: Code(s): Z01.818 - Encounter for other preprocedural examination (2) Nausea and vomiting: Code(s): R11.2 - Nausea with vomiting, unspecified (3) GERD (gastroesophageal reflux diseas e): Code(s): K21.9 - Gastro-esophageal reflux disease without esophagitis Plan This is her first colonoscopy. She has a hx of with she calls motion sickness with unexpected nausea and vomiting that has landed her in the ER. It tends to happen when she is driving to work. she will have to open the window because she feels very stuffy. It happens once a week. The timing is very inconsistent, however. She will at times have chest pains with a negative cardiac work up in the ER. The CP started as burning then felt like a pressure. She denies any HB, and says she really likes to eat spicy foods and you will never get me to stop this, I love spicy foods. She will have what she calls dyspepsia if she eats beef. No dysphagia. She denies vertigo but she does have migraines that seem to be scent driven. She can not tolerate bleach, menthol smells, etc. There is no FHX of stomach or esophageal cancer. She has no bowel problems. There are no prior problems with anesthesia or sedation. She denies any cardiac or respiratory problems. There is no FHX of crc or polyps. Her nausea and vomiting really does not sound like it is organic to the GI system since it has not tied to eating or bowel movement. She does suffer from severe migraines and it is possible that this is an atypical migraine presentation. Until we get the EGD/colonoscopy back I am going to put her on famotidine at night to see if this helps at all. I also asked her when she has the nausea and vomiting to try to take her usual medication that would abortive migraine to see if this makes a difference. Return office visit after the procedures per patient request Orders: Orders EGD/[place] [facility]bo - G I Use Only Today R11.2 - Nausea wit h vomiting, unspec ified Medications: New sodium,potassium,m ag sulfates 17.5-3 .13-1.6 gram (Supr ep Bowel Prep Kit) 480 mL orally; 3 54 mL 0RF famotidine (Pepcid ) 40 mg PO BEDTIME 60 tabs 6RF K21.9 - Gastro-eso phageal reflux dis ease without esoph agitis EGD/COLONOSCOPY 06/21/23 Larynx: Normal Esophagus: Tortuous esophagus with increased tertiary contractions without stricture or ring. GE junction at 40 cms. Irregular Z line - biopsied to check for Cano's. Stomach: Moderate diffuse gastric erythema - biopsies were obtained from the antrum. Grade 2 flap valve on retroflexed examination of the cardia. Duodenum: Normal bulb and descending duodenum Biopsies were obtained from descending duodenum to check for celiac sprue Findings: Terminal Ileum: Not evaluated Cecum: Normal Ascending Colon: Normal Transverse Colon: A 4-5 mm sessile polyp - removed with a cold biopsy. Descending Colon: Normal Sigmoid Colon: Normal Rectum: A 4-5 mm diminutive appearing polyp - removed with a cold biopsy Ano-rectum: Small internal hemorrhoids Impression and Post Procedure Diagnosis: Endoscopy Findings: ESOPHAGUS: Tortuous esophagus with increased tertiary contractions without s tricture or ring. GE junction at 40 cms. Irregular Z line - biopsied to check for Cano's. STOMACH: Gastritis DUODENUM: Normal - biopsied to check for celiac sprue Colonoscopy Findings: Two small polyps were removed Small hemorrhoids on retroflexed exam. Plan: Pt has a FU appointment on 07/02/23 with [place] Artis NP Repeat Colonoscopy in 5 years if polyps are adenomatous and 10 year if polyps are hyperplastic. (needs adult colonoscope for future colo noscopies). BIOPSY Received: 06/21/23 Diagnosis A. Small bowel, biopsy: Small intestinal mucosa within normal limits. B. Stomach, antrum, biopsy: - Antral-type mucosa with moderate chron ic active inflammation. - Positive for H pylori. C. GE junction, biopsy: - Cardiac-type mucosa with moderate dredge operator alis active inflammation; no intestinal metaplasia seen. - Squamous mucosa within normal limits. D. Colon, transverse, polypectomy: Colonic mucosa with mild surface hyperplastic changes. E. Rectum, polyp, biopsy: Hyperplastic mucosal polyp TODAY'S VISIT She says my stomach is still messed up. Her EGD shows HP so she is educated and I will treat her with leva and amox. ROV 6 mweeks. [facility] Medical History (Updated 07/02/23 @ 14:08 by BONITA Bryant) GERD (gastroesophageal reflux disease) Lumbar degenerative disc disease Tennis elbow Scabies Surgical History (Updated 06/17/23 @ 11:48 by Mary Alice Booth RN) History of tubal ligation History of section Family History Father CAD (coronary artery disease), Onset Age: 50 Mother Pacemaker Social History Household Members Other:: lives with partner, 3 children (6, 13, 28), works for [employer], Housing: Apartment Patient Tobacco Use Status: Never used Tobacco e-Cigarette/Vaping Use: Never Used service: No Current occupational status: employed Cognitive needs: No Hearing needs: No Vision needs: No Review of Systems Const Denies fatigue, Denies fever(s), Denies night sweats, Denies poor appetite and Denies weight loss ENT Reports Normal hearing present, Denies dental pain, Denies dysphagia, Reports dizziness, Denies hearing loss, Denies mouth pain, Denies odynophagia, Denies throat swelling, Denies tongue swelling and Reports other (Dentition adequate) Card Reports no additional complaints Resp Reports no additional complaints GI Details: Denies abdominal pain, Denies melena, Denies bloating, Denies hematochezia, Denies constipation, Denies GI cramping, Denies dysphagia, Denies excessive flatus, Denies early satiety, Reports dyspepsia, Denies heartburn, Denies diarrhea, Reports nausea, Denies odynophagia, Denies vomiting and Denies hematemesis Skin/Breast Denies pruritus, Denies lesions, Denies rash and Denies jaundice Neuro Reports Normal hearing present, Denies Abnormal speech present and Reports dizziness Endo Denies fatigue Aller/Immun Denies throat swelling and Denies tongue swelling Physical Exam Vital Signs: Last Vital Signs Pulse 79 07/02/23 13:58 BP 154/96 H 07/02/23 13:58 BMI result Body Mass Index 36.5 Const General: cooperative, no acute distress, well developed and well groomed Nutritional Appearance: well nourished and obese Orientation/consciousness: oriented to person, oriented to place and oriented to time Limitations: No language barrier HEENT Head: Yes normocephalic and Yes atraumatic Eyes General: appearance normal, both eyes and all related structures Pupils: Equal, round and reactive pupils present Neck Neck: Yes normal visual inspection and Yes no lymphadenopathy Thyroid: Thyroid normal Resp Effort & Inspection: normal respiratory effort and able to speak in complete sentences Auscultation: clear to auscultation bilaterally Cardio Rate: regular rate Rhythm: regular rhythm Heart sounds: Normal, physiologic split S2 sound present Peripheral pulses: radial pulses present and posterior tibial pulses present GI Inspection: No distended, Yes Abdominal panniculus present and Yes obesity Palpation (GI): Soft to palpation, nontender, no guarding, not rigid and No hepatosplenomegaly present Percussion: Yes normal to percussion Auscultation: normal bowel sounds Rectal Exam - Female: deferred Skin General skin exam: no rashes or lesions noted, turgor normal, skin not dry, no jaundice, No spider nevi and no striae Rashes: no rashes Nails: normal Neuro General: oriented to person, oriented to place and oriented to time Cranial nerves: Yes Equal, round and reactive pupils present and Yes Normal hearing present Speech: No Abnormal speech present Extrem General: Yes normal to inspection, No clubbing, No cyanosis and No edema Psych Appearance: grossly normal and well kempt Mental Status: mental status grossly normal Speech and movement: Normal speech and movement present Affect: normal affect Attitude: cooperative Thought process: Normal thought process present and not confabulating Thought content: Normal thought content present Insight: Limited insight present (Psych) Judgement: Limited judgement present (Psych) Results Reviewed Results Reviewed: EGD/COLONOSCOPY 06/21/23 Larynx: Normal Esophagus: Tortuous esophagus with increased tertiary contractions without stricture or ring. GE junction at 40 cms. Irregular Z line - biopsied to check for Cano's. Stomach: Moderate diffuse gastric erythema - biopsies were obtained from the antrum. Grade 2 flap valve on retroflexed examination of the cardia. Duodenum: Normal bulb and descending duodenum Biopsies were obtained from descending duodenum to check for celiac sprue Findings: Terminal Ileum: Not evaluated Cecum: Normal Ascending Colon: Normal Transverse Colon: A 4-5 mm sessile polyp - removed with a cold biopsy. Descending Colon: Normal Sigmoid Colon: Normal Rectum: A 4-5 mm diminutive appearing polyp - removed with a cold biopsy Ano-rectum: Small internal hemorrhoids Impression and Post Procedure Diagnosis: Endoscopy Findings: ESOPHAGUS: Tortuous esophagus with increased tertiary contractions without stricture or ring. GE junction at 40 cms. Irregular Z line - biopsied to check for Cano's. STOMACH: Gastritis DUODENUM: Normal - biopsied to check for celiac sprue Colonoscopy Findings: Two small polyps were removed Small hemorrhoids on retroflexed exam. Plan: Pt has a FU appointment on 07/02/23 with [place] Artis NP Repeat Colonoscopy in 5 years if polyps are adenomatous and 10 year if polyps are hyperplastic. (needs adult colonoscope for future colonoscopies). BIOPSY Received: 06/21/23 Diagnosis A. Small bowel, biopsy: Small intestinal mucosa within normal limits. B. Stomach, antrum, biopsy: - Antral-type mucosa with moderate chronic active inflammation. - Positive for H pylori. C. GE junction, biopsy: - Cardiac-type mucosa with moderate chronic active inflammation; no intestinal metaplasia seen. - Squamous mucosa within normal limits. D. Colon, transverse, polypectomy: Colonic mucosa with mild surface hyperplastic changes. E. Rectum, polyp, biopsy: Hyperplastic mucosal polyp Assessment & Plan Assessment & Plan (1) H. pylori infection: Code(s): A04.8 - Other specified bacterial intestinal infections Plan She is agreeable to a 10 year follow-up. The procedure was well tolerated. The results were explained and the patient is agreeable to the follow-up interval as stated. The bowel pattern has returned to normal. Education was provided to tell any 1st degree relatives about their findings to be sure that they are screened by age 45. Educated that they will be put on a recall list when it is time for their repeat scope but should they move out of state or away from the hospital they will need to remember along with their primary to repeat the procedure in a timely fashion to avoid any adverse complications. She says my stomach is still messed up. Her EGD shows HP so she is educated and I will treat her with leva and amox. ROV 6 mweeks. Medications: New levofloxacin 500 mg PO DAILY 14 days 14 tabs 0RF A04.8 - Other specified bacterial intestinal infections omeprazole 20 mg PO BID 30 days 60 caps 0RF amoxicillin 1,000 mg (2 x 500 mg) PO Q12H 14 days 56 caps 0RF Coding Level of Care Code Est Pt Level 4 (64827) Diagnoses H. pylori infection A04.8
[2023-07-02 13:58] VITALS: BP 154/96; PULSE 79; BMI 36.5
== END 2023-07-02 14:14 | disposition home or self-care (01) ==
PROVIDERS: PCP Internal Medicine; Visit Provider Nurse Practitioner
DX: A04.8 Other specified bacterial intestinal infections (principal)
CPT/HCPCS: 99214

== ENCOUNTER → 2023-07-02 13:28 | Outpatient (BNVA) | payer OTHER, SELFPAY | PROVIDERS: PCP Internal Medicine; Visit Provider Nurse Practitioner | DX: K21.9 Gastro-esophageal reflux disease without esophagitis (principal); A04.8 Other specified bacterial intestinal infections | CPT/HCPCS: 99212 ==

== ENCOUNTER 2023-07-05 08:18 | Outpatient (AMB) | payer OTHER, SELFPAY ==
--- NOTE | 2023-07-05 08:34 | A.OFFVIS_ITS ---
Intake Intake Visit Reasons: EMB results Allergies No Known Allergies Allergy (Verified 07/02/23 14:03) HPI HPI Comments History of Present Illness Details The patient is presenting for follow-up to discuss the results of her abnormal uterine bleeding workup and options of treatment. The following workup was done.: H&H= 13.5/40.5 TSH, prolactin, hCG, GC and chlamydia were negative. FSH/LH 51.1/19, in the menopausal range Endometrial biopsy pathology showed the following: Endometrium, biopsy: Proliferative endometrium; no atypia or hyperplasia identified Co testing was done in 03/27 was negative. Mammogram was BI-RADS 1 in 04/28 Pelvic ultrasound showed the following: Uterus: The uterus is anteverted. Uterus echotexture is heterogeneous. The uterus measures 9.8 x 5.7 x 6.4 cm. The endometrial stripe measures 0.7 cm. Fundal fibroid measures 2.4 x 2.1 x 2.4 cm. Lower uterine segment fibroid measures 1.2 x 0.9 x 1.5 cm. Cervical nabothian cyst. Loculated fluid in the scar. Adnexa: Both ovaries are not well visualized. There is no pelvic ascites or fluid collection. [facility], [facility] Medical History GERD (gastroesophageal reflux disease) Lumbar degenerative disc disease Tennis elbow Scabies Surgical History History of tubal ligation History of section Family History Father CAD (coronary artery disease), Onset Age: 50 Mother Pacemaker Social History Household Members Other:: lives with partner, 3 children (6, 13, 28), works for [employer], Housing: Apartment Patient Tobacco Use Status: Never used Tobacco e-Cigarette/Vaping Use: Never Used service: No Current occupational status: employed Cognitive needs: No Hearing needs: No Vision needs: No Review of Systems Const All systems reviewed & are unremarkable except as noted in HPI and below Reports as per HPI and Reports no additional complaints GI Reports no additional complaints Reports no additional complaints Assessment & Plan Assessment & Plan (1) Abnormal uterine bleeding: Comment: FSH/LH in Menopause range Proliferative endometrium Code(s): N93.9 - Abnormal uterine and vaginal bleeding, unspecified Plan: Discussed with the patient the results of the pathology of the endometrial scrapings showing proliferative endometrium. Discussed with the patient the sensitivity, specificity, positive and negative predictive value, of endometrial biopsy in detecting endometrial pathology including but not limited to endometrial hyperplasia, cancer and other pathology; in addition discussed the patient the pathology of the endometrium in post menopause is associated with an increase in the risk of endometrial hyperplasia and malignancy in patient with preferred of endometrial pathology in menopause. Recommended to the patient progesterone treatment , levo norgestrel IUD for p.o. progestins in addition to repeat endometrial biopsy every 3 months for a year. All pros and cons, risks and benefits of each were discussed with the patient. The patient decided to proceed with Mirena IUD. so a more detailed discussion about it was conducted including mechanism of action, risks (uterine perforation, infection, injury to bladder, bowel, displacement, increase in the risk of breast cancer and others) benefits (decrease the risk of future endometrial hyperplasia and carcinoma of the endometrium ...). GC/CT were recently taken and were negative and the patient was instructed to to schedule Mirena IUD insertion jj , recommended repeat endometrial biopsy every 3 months for 1 year. Instructed the patient to call in case is vaginal bleeding bleeding recurs, schedule endometrial biopsy in 3 months and IUD insertion within week All questions answered and the patient verbalized understanding and agreed with the plan. (2) Uterine myoma: Code(s): D25.9 - Leiomyoma of uterus, unspecified Plan: Discussed with the patient the findings on pelvic ultrasound & the risk of myosarcoma; discussed with the patient the options of treatment including expectant management versus hysterectomy; the pros and cons, risks benefits of each approach were discussed with the patient including the fact that in cases of myosarcoma, surgical treatment can lead to early diagnosis and positively affects the prognosis; after further discussion, the patient decided to proceed with expectant management. Will repeat pelvic ultrasound periodically. Instructions given to patient to call in case any of the following occurs: pressure symptoms, abnormal uterine bleeding, pelvic pain; and to schedule pelvic ultrasound and follow-up appointment in six-months . All questions answered, the patient verbalized understanding and agreed with the plan . Coding Level of Care Code Est Pt Level 3 (92400) Diagnoses Abnormal uterine bleeding N93.9 Uterine myoma D25.9
== END 2023-07-05 09:02 | disposition home or self-care (01) ==
LOC: HO.HWS 08:18
PROVIDERS: PCP Internal Medicine; Visit Provider Obstetrics & Gynecology
DX: N93.9 Abnormal uterine and vaginal bleeding, unspecified (principal); D25.9 Leiomyoma of uterus, unspecified
CPT/HCPCS: 99213

== ENCOUNTER → 2023-07-05 08:18 | Outpatient (BNVA) | payer OTHER, SELFPAY | PROVIDERS: PCP Internal Medicine; Visit Provider Obstetrics & Gynecology | DX: N93.9 Abnormal uterine and vaginal bleeding, unspecified (principal); D25.9 Leiomyoma of uterus, unspecified | CPT/HCPCS: 99212 ==

== ENCOUNTER 2023-07-13 15:01 | Outpatient (AMB) | payer OTHER, SELFPAY ==
[2023-07-13 15:29] VITALS: BP 146/90; BMI 36.4
--- NOTE | 2023-07-13 15:29 | A.OFFVIS_ITS ---
Intake Vital Signs 07/13/23 15:29 Height 5 ft 5 in Weight 219 lb BMI 36.4 BP 146/90 H Intake Visit Reasons: Mirena insertion Supervisor Prop Making Required: No Information Interpreted: non-clinical & clinical Mash Grinder: Mash Grinder Present (Aidyn) Allergies No Known Allergies Allergy (Verified 07/13/23 15:30) Post menopausal: No Patient : No HPI HPI Comments History of Present Illness Details Presenting for Mirena IUD insertion [facility] Medical History GERD (gastroesophageal reflux disease) Lumbar degenerative disc disease Tennis elbow Scabies Surgical History History of tubal ligation History of section Family History Father CAD (coronary artery disease), Onset Age: 50 Mother Pacemaker Social History Household Members Other:: lives with partner, 3 children (6, 13, 28), works for [employer], Housing: Apartment Patient Tobacco Use Status: Never used Tobacco e-Cigarette/Vaping Use: Never Used service: No Current occupational status: employed Cognitive needs: No Hearing needs: No Vision needs: No Female Reproductive History Menstrual control method: none Physical Exam Vital Signs: Last Vital Signs BP 146/90 H 07/13/23 15:29 BMI result Body Mass Index 36.4 Office Procedures IUD Insert/Removal Details Details: The patient is presenting for Mirena IUD insertion Urine test was done in the office and was negative; All the contraindications were excluded. The following possible complications were discussed with the patient: Intrauterine , Ectopic , Sepsis, Pelvic Infection, Irregular Bleeding and Amenorrhea, Perforation, Expulsion, Ovarian Cysts, Breast Cancer, The following adverse effects were discussed with the patient: alteration of menstrual bleeding pattern, including: unscheduled uterine bleeding decreased uterine bleeding increased scheduled uterine bleeding female genital tract bleeding ,amenorrhea , genital discharge , vulvovaginitis , breast pain , benign ovarian cyst and associated complications , dysmenorrhea , Gastrointestinal disorders abdominal/pelvic pain, headache/migraine , back pain , acne , depression Alternative options were discussed with the patient including but not limited: control pills, patch, NuvaRing, Depo-medroxyprogesterone acetate, Nexplanon, copper IUD, sterilization, vasectomy, others The procedure was explained in detail to patient , at the end patient signed the informed consent obtained. A no touch technique was used throughout the procedure. A speculum was placed into vagina and cervix was cleaned with betadine). A tenaculum was placed. A plastic sound was advanced through the external and internal os until it reached the fundus of the uterus, the depth was 8 cm. The sound was then withdrawn. The IUD was loaded in a sterile manner and advanced into position. The string was visualized and cut to 3 cm. Tenaculum site hemostatic. All instruments removed from vagina. Patient tolerated the procedure well. NO complications were noted. Patient was instructed to call for fever over 100.4, significant pain unrelieved by Motrin, IUD expulsion, heavy bleeding, or abnormal discharge. In addition, the following clinical considerations were discussed with the patient to call for removal: A stroke or heart attack ,Very severe or migraine headaches ,Unexplained fever ,Yellowing of the skin or whites of the eyes, as these may be signs of serious liver problems , or suspected , Pelvic pain or pain during sex ,HIV positive seroconversion in herself or her partner , Possible exposure to sexually transmitted infections Unusual vaginal discharge or genital sores , severe vaginal bleeding or bleeding that lasts a long time, or if she misses a menstrual period, Inability to feel Mirena's threads Counseled the patient that the IUD does not protect against STI's, recommended use of condoms for the first 7 days post insertion and explained to the patient that condoms are recommended for patients at risk for sexually transmitted infections. Informed the patient that Mirena IUD is FDA approved for 8 years for contraception for 5 years for the treatment of heavy menses Instructed the patient to schedule a Follow up appointment in 4 to 6 weeks following insertion. This note was generated with a voice recognition program. Some errors may have been overlooked during the review of this note. Sometimes these errors may affect the content or meaning of a given sentence. 44051-HXI Insertion Procedure code (CPT) selection complete Office Meds Mirena 21 mcg/24 hours (8 yrs) 52 mg intrauterine device Performing Provider: Timoteo Ray MD Performing Location: [facility] [place] [facility] Documented (not given) by: Timoteo Ray MD on 07/13/23 15:35 Dose Route Admin Location Dispensed Lot Number Expiration Date [employer] 1 device intrauterine ea Assessment & Plan Assessment & Plan (1) Abnormal uterine bleeding: Comment: FSH/LH in Menopause range Proliferative endometrium Code(s): N93.9 - Abnormal uterine and vaginal bleeding, unspecified Plan: Mirena IUD inserted, see procedure note Orders: Orders AMB IUD Insertion/Removal - Practice Supplied Today N93.9 - Abnormal uterine and vaginal bleeding, unspecified Medications: New Mirena (levonorgestrel) 1 device intrauterine ONCE 1 ea 0RF NS N93.9 - Abnormal uterine and vaginal bleeding, unspecified Coding Level of Care Code Procedure Only Diagnoses Abnormal uterine bleeding N93.9 CPT Codes Details - CPT: 78076-OIS Insertion ([id number])
== END 2023-07-13 15:36 | disposition home or self-care (01) ==
LOC: HO.HWS 15:01
PROVIDERS: PCP Internal Medicine; Visit Provider Obstetrics & Gynecology
DX: Z30.430 Encounter for insertion of intrauterine contraceptive device (principal); N93.9 Abnormal uterine and vaginal bleeding, unspecified; Z32.02 Encounter for pregnancy test, result negative
CPT/HCPCS: 58300

== ENCOUNTER → 2023-07-13 15:01 | Outpatient (BNVA) | payer OTHER, SELFPAY | PROVIDERS: PCP Internal Medicine; Visit Provider Obstetrics & Gynecology | DX: Z30.430 Encounter for insertion of intrauterine contraceptive device (principal); N93.9 Abnormal uterine and vaginal bleeding, unspecified | CPT/HCPCS: 58300; 81025; J7298 ==

== ENCOUNTER 2023-08-11 07:36 | Outpatient (AMB) | payer OTHER, SELFPAY ==
--- NOTE | 2023-08-11 07:43 | MHC.OFFVIS ---
Vital Signs 08/11/23 07:47 Height 5 ft 5 in Weight 218 lb 4.122 oz BMI 36.3 BP 130/80 Intake Visit Reasons: IUD Check Ginning Operator Required: No Information Interpreted: non-clinical & clinical Field Artillery Operations Man: Field Artillery Operations Man Present (Stephanie Fierro OBDULIA) Accompanied by: Self / Same As Patient Allergies No Known Allergies Allergy (Verified 08/11/23 07:48) Post menopausal: Yes HPI Comments Details: The patient is presenting for IUD check with no complaints. [facility] Medical History GERD (gastroesophageal reflux disease) Lumbar degenerative disc disease Tennis elbow Scabies Surgical History History of tubal ligation History of section Family History Father CAD (coronary artery disease), Onset Age: 50 Mother Pacemaker Social History Household Members Other:: lives with partner, 3 children (6, 13, 28), works for [employer], Housing: Apartment Patient Tobacco Use Status: Never used Tobacco e-Cigarette/Vaping Use: Never Used service: No Current occupational status: employed Cognitive needs: No Hearing needs: No Vision needs: No Review of Systems Const All systems reviewed & are unremarkable except as noted in HPI and below Physical Exam General: Yes no CVA tenderness External Female Exam: normal external appearance and normal appearance of the urethra Speculum Exam - Vagina: normal appearance of the vagina, normal palpation, no lesions and no masses Speculum Exam - Cervix: normal appearance of the cervix, normal palpation, no lesions, no masses, nontender and Other cervical findings present (IUD thread seen) Bimanual exam- vagina & uterus: normal bimanual exam, normal palpation, uterine size normal, normal palpation, uterine shape normal, No Cervical tenderness present and non-tender Bimanual Exam- Adnexa, other: normal adnexae Back/Spine/Pelvis Back: no CVA tenderness Assessment & Plan Assessment & Plan (1) IUD check up: Code(s): Z30.431 - Encounter for routine checking of intrauterine contraceptive device Category: Medical Plan: Discussed with the patient the finding on physical exam, IUD string in place, the patient was reassured. Instructions given to patient to call in case of temperature above 100.4, severe cramping/pelvic pain, abnormal discharge or abnormal uterine bleeding or if she misses her menstrual cycle. Otherwise follow-up at her annual exam appointment. All questions answered, the patient verbalized understanding. Coding Level of Care Code Est Pt Level 3 (58714) Diagnoses IUD check up Z30.431
[2023-08-11 07:47] VITALS: BP 130/80; BMI 36.3
== END 2023-08-11 08:15 | disposition home or self-care (01) ==
PROVIDERS: PCP Internal Medicine; Visit Provider Obstetrics & Gynecology
DX: Z30.431 Encounter for routine checking of intrauterine contraceptive device (principal)
CPT/HCPCS: 99213

== ENCOUNTER → 2023-08-11 07:36 | Outpatient (BNVA) | payer OTHER, SELFPAY | PROVIDERS: PCP Internal Medicine; Visit Provider Obstetrics & Gynecology | DX: Z30.431 Encounter for routine checking of intrauterine contraceptive device (principal); Z98.51 Tubal ligation status | CPT/HCPCS: 99212 ==

== ENCOUNTER 2023-08-13 07:51 | Outpatient (AMB) | payer OTHER, SELFPAY ==
--- NOTE | 2023-08-13 08:08 | MHC.OFFVIS ---
Vital Signs 08/13/23 08:13 Height 5 ft 5 in Weight 220 lb 7.396 oz BMI 36.7 BP 148/87 H Blood Pressure Location Lt brachial Position Sitting Pulse 81 Intake Visit Reasons: 6 week follow up Intake Note: Jojo presents in the office as a 6 week follow up. CC: She states that she is not happy with one of the medications. When she forgets to take it she states that it makes her feel better when she does not take it. She states it seems like her joints were effected and not sure if it is related. She states she does not have heartburn and she finished antibiotics that her given. Supervisor Contact And Service Clerks Required: No Allergies No Known Allergies Allergy (Verified 08/13/23 08:13) HPI HPI 6 week follow up: Details: Assessment & Plan (1) H. pylori infection: Code(s): A04.8 - Other specified bacterial intestinal infections Plan She is agreeable to a 10 year follow-up. The procedure was well tolerated. The results were explained and the patient is agreeable to the follow-up interval as stated. The bowel pattern has returned to normal. Education was provided to tell any 1st degree relatives about their findings to be sure that they are screened by age 45. Educated that they will be put on a recall list when it is time for their repeat scope but should they move out of state or away from the hospital they will need to remember along with their primary to repeat the procedure in a timely fashion to avoid any adverse complications. She says my stomach is still messed up. Her EGD shows HP so she is educated and I will treat her with leva and amox. ROV 6 mweeks. Medications: New levofloxacin 500 mg PO DAILY 14 days 14 tabs 0RF A04.8 - Other specified bacterial intestinal infections omeprazole 20 mg PO BID 30 days 60 caps 0RF amoxicillin 1,000 mg (2 x 500 mg) PO Q12H 14 days 56 caps 0RF TODAY'S VISIT She is not taking the o2o as she felt that it effected her joints (? levaquin). She has been off of it for 2 weeks. Her episodes of nausea continue at intermittent intervals, no timing or precipitating foods or events she can ID. She started a new job, her schedule is all over the place. She is also going through menopause and has fibroids, had an IUD inserted a month ago but this was well after the onset of sx. She sees Dr. Ray. She dislikes pills. declines nausea meds. At this point will get an H pylori breath test and proceed from there. ROV 3 weeks. She is now working at [employer]. [facility] Medical History Well woman exam Nausea and vomiting Pre-op examination Tennis elbow Contact dermatitis Annual physical exam GERD (gastroesophageal reflux disease) Lumbar degenerative disc disease Scabies Surgical History (Updated 08/13/23 @ 08:15 by OBDULIA Sadler) Hx of colonoscopy History of esophagogastroduodenoscopy (EGD) History of tubal ligation History of section Family History Father CAD (coronary artery disease), Onset Age: 50 Mother Pacemaker Social History Household Members Other:: lives with partner, 3 children (6, 13, 28), works for [employer], Housing: Apartment Patient Tobacco Use Status: Never used Tobacco e-Cigarette/Vaping Use: Never Used service: No Current occupational status: employed Cognitive needs: No Hearing needs: No Vision needs: No Review of Systems Const Reports fatigue, Denies fever(s), Denies night sweats, Denies poor appetite and Denies weight loss ENT Reports Normal hearing present, Denies dental pain, Denies dysphagia, Denies hearing loss, Denies mouth pain, Denies odynophagia, Denies throat swelling, Denies tongue swelling and Reports other (Dentition adequate) Card Reports no additional complaints Resp Reports no additional complaints GI Details: Denies abdominal pain, Denies melena, Denies bloating, Denies hematochezia, Denies constipation, Denies GI cramping, Denies dysphagia, Denies excessive flatus, Denies early satiety, Denies heartburn, Denies diarrhea, Reports nausea, Denies odynophagia, Denies vomiting and Denies hematemesis Reports abnormal menses and Reports vaginal dryness Skin/Breast Denies pruritus, Denies lesions, Denies rash and Denies jaundice Neuro Reports Normal hearing present and Denies Abnormal speech present Endo Reports fatigue Aller/Immun Denies throat swelling and Denies tongue swelling Physical Exam Vital Signs: Last Vital Signs Pulse 81 08/13/23 08:13 BP 148/87 H 08/13/23 08:13 BMI result Body Mass Index 36.7 Const General: cooperative, no acute distress, well developed and well groomed Nutritional Appearance: well nourished and obese Orientation/consciousness: oriented to person, oriented to place and oriented to time Limitations: No language barrier HEENT Head: Yes normocephalic and Yes atraumatic Eyes General: appearance normal, both eyes and all related structures Pupils: Equal, round and reactive pupils present Neck Neck: Yes normal visual inspection and Yes no lymphadenopathy Thyroid: Thyroid normal Resp Effort & Inspection: normal respiratory effort and able to speak in complete sentences Auscultation: clear to auscultation bilaterally Cardio Rate: regular rate Rhythm: regular rhythm Heart sounds: Normal, physiologic split S2 sound present Peripheral pulses: radial pulses present and posterior tibial pulses present GI Inspection: No distended, Yes Abdominal panniculus present and Yes obesity Palpation (GI): Soft to palpation, nontender, no guarding, not rigid and No hepatosplenomegaly present Percussion: Yes normal to percussion Auscultation: normal bowel sounds Rectal Exam - Female: deferred Skin General skin exam: no rashes or lesions noted, turgor normal, skin not dry, no jaundice, No spider nevi and no striae Rashes: no rashes Nails: normal Neuro General: oriented to person, oriented to place and oriented to time Cranial nerves: Yes Equal, round and reactive pupils present and Yes Normal hearing present Speech: No Abnormal speech present Extrem General: Yes normal to inspection, No clubbing, No cyanosis and No edema Psych Appearance: grossly normal and well kempt Mental Status: mental status grossly normal Speech and movement: Normal speech and movement present Affect: normal affect Attitude: cooperative Thought process: Normal thought process present and not confabulating Thought content: Normal thought content present Insight: Fair insight present (Psych) Judgement: Fair judgement present (Psych) Assessment & Plan Assessment & Plan (1) H. pylori infection: Code(s): A04.8 - Other specified bacterial intestinal infections Category: Medical (2) GERD (gastroesophageal reflux disease): Code(s): K21.9 - Gastro-esophageal reflux disease without esophagitis Category: Medical Plan She is not taking the o2o as she felt that it effected her joints (? levaquin). She has been off of it for 2 weeks. Her episodes of nausea continue at intermittent intervals, no timing or precipitating foods or events she can ID. She started a new job, her schedule is all over the place. She is also going through menopause and has fibroids, had an IUD inserted a month ago but this was well after the onset of sx. She sees Dr. Ray. She dislikes pills. declines nausea meds. At this point will get an H pylori breath test and proceed from there. ROV 3 weeks. She is now working at [employer]. Orders: Orders H Pylori Breath Test Today Medications: On Hold omeprazole Hold Comment: Doctor's Order 20 mg PO BID 90 days 180 caps 0RF Coding Level of Care Code Est Pt Level 3 (14325) Diagnoses H. pylori infection A04.8 GERD (gastroesophageal reflux disease) K21.9
[2023-08-13 08:13] VITALS: BP 148/87; PULSE 81; BMI 36.7
== END 2023-08-13 09:14 | disposition home or self-care (01) ==
PROVIDERS: PCP Internal Medicine; Visit Provider Nurse Practitioner
DX: A04.8 Other specified bacterial intestinal infections (principal); K21.9 Gastro-esophageal reflux disease without esophagitis
CPT/HCPCS: 99213

== ENCOUNTER → 2023-08-13 07:51 | Outpatient (BNVA) | payer OTHER, SELFPAY | PROVIDERS: PCP Internal Medicine; Visit Provider Nurse Practitioner | DX: A04.8 Other specified bacterial intestinal infections (principal); K21.9 Gastro-esophageal reflux disease without esophagitis | CPT/HCPCS: 99212 ==

== ENCOUNTER 2023-08-13 17:11 | Outpatient (REF) | payer OTHER, SELFPAY ==
[2023-08-18 14:01] LABS: H Pylori Breath Test Negative (Negative)
== END 2023-08-13 17:12 | disposition home or self-care (01) ==
LOC: HO.LNP 17:11
PROVIDERS: Visit Provider Nurse Practitioner
DX: Z11.2 Encounter for screening for other bacterial diseases (principal)
CPT/HCPCS: 83013

== ENCOUNTER → 2023-09-03 07:51 | Outpatient (BNVA) | payer OTHER, SELFPAY | PROVIDERS: PCP Internal Medicine; Visit Provider Nurse Practitioner ==

== ENCOUNTER 2023-09-09 10:53 | Outpatient (AMB) | payer OTHER, SELFPAY ==
--- NOTE | 2023-09-09 10:57 | A.OFFVIS_ITS ---
Vital Signs 09/09/23 10:59 Height 5 ft 5 in Weight 222 lb 10.67 oz BMI 37.0 BP 142/78 H Blood Pressure Location Lt brachial Position Sitting Pulse 78 Intake Visit Reasons: 3 Weeks Follow Up Intake Note: Jeremy presents to in office visit today in 3 weeks follow up of GERD. CC: Patient reports that she continues to have nauseas that are very random and she can't associate to any food or drink. Group Art Supervisor Required: No Accompanied by: Self / Same As Patient Allergies No Known Allergies Allergy (Verified 09/09/23 11:02) HPI HPI 3 Weeks Follow Up: Details: Assessment & Plan (1) H. pylori infection: Code(s): A04.8 - Other specified bacterial intestinal infections Category: Medical (2) GERD (gastroesophageal reflux disease): Code(s): K21.9 - Gastro-esophageal reflux disease without esophagitis Category: Medical Plan She is not taking the o2o as she felt that it effected her joints (? levaquin). She has been off of it for 2 weeks. Her episodes of nausea continue at intermittent intervals, no timing or precipitating foods or events she can ID. She started a new job, her schedule is all over the place. She is also going through menopause and has fibroids, had an IUD inserted a month ago but this was well after the onset of sx. She sees Dr. Ray. She dislikes pills. declines nausea meds. At this point will get an H pylori breath test and proceed from there. ROV 3 weeks. She is now working at [employer] [place]. Orders: Orders H Pylori Breath Test Today Medications: On Hold omeprazole Hold Comment: Doctor's Order 20 mg PO BID 90 days 180 caps 0RF Laboratory Tests 08/13/23 09:13 H. pylori Breath Test Negative CORRESPONDENCE On 09/03/23 @ 11:40 [place] Artis Wrote To Chandra[place] (2) There is nothing urgent let her know that the H pylori retest was negative so that has no longer factor. I know she is busy with her new job and I will see her in September. On 09/03/23 @ 08:06 Erika Nash Wrote To ChandraJ[place] Pt is r/s for 09/09/23, she asked if it's urgent to please call her [phone]. TODAY'S VISIT The nausea continues randomly. It is not HP. I will give ODT zofran for this. Could be hormonal (she is going through menopause and has menorrhagia), neurologic/migraines/ear etc. She has an autisitic son. ROV 6 mos. PFS Medical History (Updated 09/09/23 @ 11:22 by BONITA Bryant) Nausea and vomiting Abdominal bloating Well woman exam Pre-op examination Tennis elbow Contact dermatitis Annual physical exam GERD (gastroesophageal reflux disease) Lumbar degenerative disc disease Scabies Surgical History Hx of colonoscopy History of esophagogastroduodenoscopy (EGD) History of tubal ligation History of section Family History Father CAD (coronary artery disease), Onset Age: 50 Mother Pacemaker Social History Household Members Other:: lives with partner, 3 children (6, 13, 28), works for [employer], Housing: Apartment Patient Tobacco Use Status: Never used Tobacco e-Cigarette/Vaping Use: Never Used service: No Current occupational status: employed Cognitive needs: No Hearing needs: No Vision needs: No Review of Systems Const Denies fatigue, Denies fever(s), Denies night sweats, Denies poor appetite and Denies weight loss ENT Reports Normal hearing present, Denies dental pain, Denies dysphagia, Reports dizziness, Denies hearing loss, Denies mouth pain, Denies odynophagia, Denies throat swelling, Denies tongue swelling and Reports other (Dentition adequate) Card Reports no additional complaints Resp Reports no additional complaints GI Details: Denies abdominal pain, Denies melena, Denies bloating, Denies hematochezia, Denies constipation, Denies GI cramping, Denies dysphagia, Denies excessive flatus, Denies early satiety, Denies heartburn, Denies diarrhea, Reports nausea, Denies odynophagia, Denies vomiting and Denies hematemesis Reports abnormal vaginal bleeding Skin/Breast Denies pruritus, Denies lesions, Denies rash and Denies jaundice Neuro Reports Normal hearing present, Denies Abnormal speech present and Reports dizziness Endo Denies fatigue Aller/Immun Denies throat swelling and Denies tongue swelling Physical Exam Vital Signs: Last Vital Signs Pulse 78 09/09/23 10:59 BP 142/78 H 09/09/23 10:59 BMI result Body Mass Index 37.0 Const General: cooperative, no acute distress, well developed and well groomed Nutritional Appearance: well nourished and obese Orientation/consciousness: oriented to person, oriented to place and oriented to time Limitations: No language barrier HEENT Head: Yes normocephalic and Yes atraumatic Eyes General: appearance normal, both eyes and all related structures Pupils: Equal, round and reactive pupils present Neck Neck: Yes normal visual inspection and Yes no lymphadenopathy Thyroid: Thyroid normal Resp Effort & Inspection: normal respiratory effort and able to speak in complete sentences Auscultation: clear to auscultation bilaterally Cardio Rate: regular rate Rhythm: regular rhythm Heart sounds: Normal, physiologic split S2 sound present Peripheral pulses: radial pulses present and posterior tibial pulses present GI Inspection: No distended, Yes Abdominal panniculus present and Yes obesity Palpation (GI): Soft to palpation, nontender, no guarding, not rigid and No hepatosplenomegaly present Percussion: Yes normal to percussion Auscultation: normal bowel sounds Rectal Exam - Female: deferred Skin General skin exam: no rashes or lesions noted, turgor normal, skin not dry, no jaundice, No spider nevi and no striae Rashes: no rashes Nails: normal Neuro General: oriented to person, oriented to place and oriented to time Cranial nerves: Yes Equal, round and reactive pupils present and Yes Normal hearing present Speech: No Abnormal speech present Extrem General: Yes normal to inspection, No clubbing, No cyanosis and No edema Psych Appearance: grossly normal and well kempt Mental Status: mental status grossly normal Speech and movement: Normal speech and movement present Affect: normal affect Attitude: cooperative Thought process: Normal thought process present and not confabulating Thought content: Normal thought content present Insight: Fair insight present (Psych) Judgement: Fair judgement present (Psych) Assessment & Plan Assessment & Plan (1) Nausea and vomiting: Code(s): R11.2 - Nausea with vomiting, unspecified Category: Medical Plan The nausea continues randomly. It is not HP. I will give ODT zofran for this. Could be hormonal (she is going through menopause and has menorrhagia), neurologic/migraines/ear etc. She has an autisitic son. ROV 6 mos. Medications: New ondansetron 4 mg PO BID-TID PRN 60 tabs 3RF nausea and vomiting R11.2 - Nausea with vomiting, unspecified, R14.0 - Abdominal distension (gaseous) Coding Level of Care Code Est Pt Level 3 (84786) Diagnoses Nausea and vomiting R11.2
[2023-09-09 10:59] VITALS: BP 142/78; PULSE 78; BMI 37.0
== END 2023-09-09 11:32 | disposition home or self-care (01) ==
PROVIDERS: PCP Internal Medicine; Visit Provider Nurse Practitioner
DX: R11.2 Nausea with vomiting, unspecified (principal)
CPT/HCPCS: 99213

== ENCOUNTER → 2023-09-09 10:53 | Outpatient (BNVA) | payer OTHER, SELFPAY | PROVIDERS: PCP Internal Medicine; Visit Provider Nurse Practitioner | DX: R11.2 Nausea with vomiting, unspecified (principal) | CPT/HCPCS: 99212 ==

== ENCOUNTER 2023-10-05 07:21 | Outpatient (REF) | payer OTHER, SELFPAY | END 2023-10-05 07:22 | disposition home or self-care (01) | LOC: HO.LNP 07:21 | PROVIDERS: PCP Internal Medicine; Visit Provider Obstetrics & Gynecology | DX: Z32.02 Encounter for pregnancy test, result negative (principal); N93.9 Abnormal uterine and vaginal bleeding, unspecified; D25.9 Leiomyoma of uterus, unspecified | CPT/HCPCS: 58100; 81025; 88305 ==

== ENCOUNTER 2023-10-05 07:21 | Outpatient (AMB) | payer OTHER, SELFPAY ==
--- NOTE | 2023-10-05 07:24 | A.OFFVIS_ITS ---
Intake Visit Reasons: EMB Allergies No Known Allergies Allergy (Verified 09/09/23 11:02) HPI Comments Details: Presenting for EMB to follow up on proliferative endometrium on Mirena IUD. The patient had a pelvic ultrasound in 03/27 which showed uterine myoma [facility] Medical History Nausea and vomiting Abdominal bloating Well woman exam Pre-op examination Tennis elbow Contact dermatitis Annual physical exam GERD (gastroesophageal reflux disease) Lumbar degenerative disc disease Scabies Surgical History Hx of colonoscopy History of esophagogastroduodenoscopy (EGD) History of tubal ligation History of section Family History Father CAD (coronary artery disease), Onset Age: 50 Mother Pacemaker Social History Household Members Other:: lives with partner, 3 children (6, 13, 28), works for [employer], Housing: Apartment Patient Tobacco Use Status: Never used Tobacco e-Cigarette/Vaping Use: Never Used service: No Current occupational status: employed Cognitive needs: No Hearing needs: No Vision needs: No Office Procedures Endometrial Biopsy Details: The patient was counseled regarding the indication and benefits of endometrial sampling to rule out endometrial pathology including not limited to endometrial hyperplasia or endometrial cancer and others; The alternatives (Either do nothing vs. hysteroscopy D&C) & the risks were discussed with the patient including but not limited: pain, uterine perforation, bleeding, infection, possible injury to bladder, bowel, ureter, possible need for blood transfusion with all its possible risks. The patient verbalized understanding all questions answered and signed consent. Urine test done in the office was negative The patient was placed into the dorsal lithotomy position; a speculum was inserted in the vagina. Using aseptic technique for the procedure, the cervix was cleansed with Betadine. The anterior lip of the cervix was grasped with a single tooth tenaculum. The uterus was sounded to 7 cm with a 4 mm Pipelle was used. Tissues samples were obtained and placed in formalin, in a patient labeled container and sent to the pathology department. At the end of the procedure, there was minimal bleeding noted The patient tolerated the procedure well and was discharged in good condition with the following instructions: Nothing in the vagina until the bleeding stops. No sex until the bleeding stops, to call if any of the following occurs: fever (>100.4), flu-like symptoms, abdominal pain, heavy bleeding, four smelling vaginal discharge. The patient was instructed to schedule a Follow up appointment in 2 weeks to discuss pathology results of the biopsy and treatment options. This note was generated with a voice recognition program. Some errors may have been overlooked during the review of this note. Sometimes these errors may affect the content or meaning of a given sentence. [id number] Biopsy Results AMB Test Urine AMB Test Urine Negative Last Edit by Stephanie Fierro CMA on 07:47 Assessment & Plan Assessment & Plan (1) Uterine myoma: Code(s): D25.9 - Leiomyoma of uterus, unspecified Category: Medical Plan: Ultrasound ordered , instructions given the patient to schedule the ultrasound and follow-up appointment. All questions answered, the patient verbalized understanding (2) Abnormal uterine bleeding: Comment: FSH/LH in Menopause range Proliferative endometrium Code(s): N93.9 - Abnormal uterine and vaginal bleeding, unspecified Category: Medical Plan: EMB done, instructions given the patient to schedule a follow-up appointment and EMB in 4 months follow-up on proliferative endometrium Orders: Orders US pelvic and transvaginal Today D25.9 - Leiomyoma of uterus, unspecified AMB HCG Urine Test Today Z32.02 - Encounter for test, result negative Surgical Today N93.9 - Abnormal uterine and vaginal bleeding, unspecified AMB Endometrial Biopsy Today N93.9 - Abnormal uterine and vaginal bleeding, unspecified Coding Level of Care Code Procedure Only Diagnoses Uterine myoma D25.9 Abnormal uterine bleeding N93.9 CPT Codes Endometrial Biopsy - CPT: 87527-Ehzxuxhayiq Biopsy ([id number])
== END 2023-10-05 08:01 | disposition home or self-care (01) ==
PROVIDERS: PCP Internal Medicine; Visit Provider Obstetrics & Gynecology
DX: N93.9 Abnormal uterine and vaginal bleeding, unspecified (principal); D25.9 Leiomyoma of uterus, unspecified; Z32.02 Encounter for pregnancy test, result negative
CPT/HCPCS: 58100

== ENCOUNTER 2023-10-27 11:01 | Outpatient (REF) | payer OTHER, SELFPAY ==
--- NOTE | ~2023-10-27 | US_ITS ---
EXAMINATION: US PELVIS CLINICAL INFORMATION: Leiomyoma, IUD, endometrial biopsy 10/05/2023. Patient denies pain. COMPARISON: 03/22/2023. TECHNIQUE: Ultrasound of the pelvis is performed using both transabdominal and transvaginal transducers along with Doppler. Transvaginal imaging is performed due to inadequate visualization transabdominally. Limited visualization due to bowel gas and body habitus. FINDINGS: Enlarged fibroid uterus measures 10.9 x 4.4 x 5.5 cm. Severely limited visualization particularly on transvaginal ultrasound images and, therefore, fibroids were measured on transabdominal ultrasound images. 1.7 x 1.1 x 1.3 cm lower uterine segment fibroid, previously 1.2 x 0.9 x 1.5 cm. 2.4 x 1.8 x 1.7 cm fundal fibroid, previously 2.4 x 2.1 x 2.4 cm. Left ovary measures 2.1 x 1.2 x 1.1 cm, volume 1.5 mL. Right ovary measures 2.5 x 2.0 x 1.0 cm, volume 2.7 mL. Limited visualization of bilateral ovaries. IUD in place within the endometrial cavity. Endometrium obscured due to shadowing from IUD and heterogeneous, fibroid uterus as well as body habitus. No significant free fluid. US/US pelvic and transvaginal IMPRESSION: 1. Enlarged fibroid uterus. 2. IUD in place within the endometrial cavity. Endometrial obscured due to shadowing from IUD and heterogeneous, fibroid uterus as well as body habitus. 3. Limited visualization of bilateral ovaries.
== END 2023-10-27 11:02 | disposition home or self-care (01) ==
LOC: HO.US 11:01
PROVIDERS: PCP Internal Medicine; Visit Provider Obstetrics & Gynecology
DX: D25.9 Leiomyoma of uterus, unspecified (principal)
CPT/HCPCS: 76830; 76856

== ENCOUNTER 2023-12-16 09:09 | Outpatient (AMB) | payer OTHER, SELFPAY ==
--- NOTE | 2023-12-16 09:10 | A.OFFVIS_ITS ---
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 The patient has no complaints, no vaginal bleeding, no feverishness chills or abdominal pain. The endometrial biopsy in 10/26 pathology report showed the following: Endometrium, biopsy: Fragments of inactive endometrium with extensive pseudodecidual change, consistent with exogenous progestin, and necrosis; negative for atypia or hyperplasia 06/26 endometrial biopsy showed proliferative endometrium 07/27 Mirena IUD inserted In addition the patient had a follow-up ultrasound to follow-up on the previous finding of uterine myomas. Pelvic ultrasound done recently showed the fo llowing: Enlarged fibroid uterus measures 10.9 x 4.4 x 5.5 cm. Severely limited visualization particularly on transvaginal ultrasound images and, therefore, fibroids were measured on transabdominal ultrasound images. 1.7 x 1.1 x 1.3 cm lower uterine segment fibroid, previously 1.2 x 0.9 x 1.5 cm. 2.4 x 1.8 x 1.7 cm fundal fibroid, previously 2.4 x 2.1 x 2.4 cm. Left ovary measures 2.1 x 1.2 x 1.1 cm, volume 1.5 mL. Right ovary measures 2.5 x 2.0 x 1.0 cm, volume 2.7 mL. Limited visualization of bilateral ovaries. IUD in place within the endometrial cavity. Endometrium obscured due to shadowing from IUD and heterogeneous, fibroid uterus as well as body habitus. No significant free fluid.he patient is presenting after endometrial biopsy. [facility] Medical History Nausea and vomiting Abdominal bloating Well woman exam Pre-op examination Tennis elbow Contact dermatitis Annual physical exam GERD (gastroesophageal reflux disease) Lumbar degenerative disc disease Scabies Surgical History Hx of colonoscopy History of esophagogastroduodenoscopy (EGD) History of tubal ligation History of section Family History Father CAD (coronary artery disease), Onset Age: 50 Mother Pacemaker Social History Household Members Other:: lives with partner, 3 children (6, 13, 28), works for [employer], Housing: Apartment Patient Tobacco Use Status: Never used Tobacco e-Cigarette/Vaping Use: Never Used service: No Current occupational status: employed Cognitive needs: No Hearing needs: No Vision needs: No Review of Systems Const All systems reviewed & are unremarkable except as noted in HPI and below Reports as per HPI and Reports no additional complaints GI Reports no additional complaints Reports no additional complaints Physical Exam Vital Signs: Last Vital Signs BP 132/76 12/16/23 09:11 BMI result Body Mass Index 37.0 Assessment & Plan Assessment & Plan (1) Uterine myoma: Code(s): D25.9 - Leiomyoma of uterus, unspecified Category: Medical Plan: Discussed with the patient the findings on pelvic ultrasound & the risk of myosarcoma; discussed with the patient the options of treatment including expectant management versus hysterectomy; the pros and cons, risks benefits of each approach were discussed with the patient including the fact that in cases of myosarcoma, surgical treatment can lead to early diagnosis and positively affects the prognosis; after further discussion, the patient decided to proceed with expectant management. Will repeat pelvic ultrasound periodically. Instructions given to patient to call in case any of the following occurs: pressure symptoms, abnormal uterine bleeding, pelvic pain; and to schedule a six-months pelvic ultrasound and a follow-up appointment . All questions answered, the patient verbalized understanding and agreed with the plan . (2) Abnormal uterine bleeding: Comment: FSH/LH in Menopause range Proliferative endometrium on 06/26 Mirena IUD inserted 07/27 Inactive endometrium 10/26 Code(s): N93.9 - Abnormal uterine and vaginal bleeding, unspecified Category: Medical Plan: Discussed with the patient the results of the pathology, inactive endometrium with no evidence of endometrial hyperplasia and/or malignancy. The patient was reassured. Instructions given the patient to schedule a repeat EMB in 4 months, and to call in case of recurrence of abnormal uterine bleeding. All questions answered, the patient verbalized understanding Orders: Orders US pelvic and transvaginal 6 Months D25.9 - Leiomyoma of uterus, unspecified Coding Level of Care Code Est Pt Level 3 (33632) Diagnoses Uterine myoma D25.9 Abnormal uterine bleeding N93.9
[2023-12-16 09:11] VITALS: BP 132/76; BMI 37.0
== END 2023-12-16 09:48 | disposition home or self-care (01) ==
PROVIDERS: PCP Internal Medicine; Visit Provider Obstetrics & Gynecology
DX: D25.9 Leiomyoma of uterus, unspecified (principal); N93.9 Abnormal uterine and vaginal bleeding, unspecified
CPT/HCPCS: 99213

== ENCOUNTER → 2023-12-16 09:09 | Outpatient (BNVA) | payer OTHER, SELFPAY | PROVIDERS: PCP Internal Medicine; Visit Provider Obstetrics & Gynecology | DX: N93.9 Abnormal uterine and vaginal bleeding, unspecified (principal); D25.9 Leiomyoma of uterus, unspecified; Z97.5 Presence of (intrauterine) contraceptive device | CPT/HCPCS: 99212 ==

== ENCOUNTER 2024-02-22 08:12 | Outpatient (REF) | payer OTHER, SELFPAY ==
[2024-02-22 13:32] LABS: Influenza A PCR NEGATIVE (Negative); Influenza B PCR NEGATIVE (Negative); Resp Syncy Virus RNA Qual PCR NEGATIVE (Negative); SARS COV2 PCR INHOUSE NEGATIVE (Negative)
== END 2024-02-22 08:13 | disposition home or self-care (01) ==
LOC: HO.LNP 08:12
PROVIDERS: PCP Internal Medicine; Visit Provider Physician Assistant
DX: J06.9 Acute upper respiratory infection, unspecified (principal)
CPT/HCPCS: 0241U; 87880; 99212

== ENCOUNTER 2024-02-22 08:12 | Outpatient (AMB) | payer OTHER, SELFPAY ==
--- NOTE | 2024-02-22 08:46 | AM.OFFWIN_ITS ---
Intake Vital Signs 02/22/24 08:49 Height 5 ft 5 in Weight 229 lb BMI 38.1 BP 126/90 H Blood Pressure Location Rt brachial Position Sitting Pulse 88 Pulse Source Pulse Oximeter Temp 98.2 F Temp Source Oral Pulse Oximetry (%) 98 Oxygen Delivery Method Room Air Intake Visit Reasons: EP sore throat Intake Note: Patient here for sore throat that has been present for about 4 days. Patient Tobacco Use Status: Never used Tobacco Allergies No Known Allergies Allergy (Verified 02/22/24 08:50) Do you need a note to return to daycare/school/sports/work: No HPI EP sore throat HPI Onset 02/17/24 HPI Comments History of Present Illness Details This is a 53-year-old female with no stated past medical history who presents for evaluation of sinus congestion that she has had since and a sore throat with cough that she has had since Wednesday. Patient denies having any fevers but has had chills. She has been using tea with honey and lemon only without relief of her symptoms. She denies having any chest pain, shortness breath, hemoptysis, nausea, vomiting or abdominal pain. [facility] Medical History Nausea and vomiting Abdominal bloating Well woman exam Pre-op examination Tennis elbow Contact dermatitis Annual physical exam GERD (gastroesophageal reflux disease) Lumbar degenerative disc disease Scabies Surgical History Hx of colonoscopy History of esophagogastroduodenoscopy (EGD) History of tubal ligation History of section Family History Father CAD (coronary artery disease), Onset Age: 50 Mother Pacemaker Social History Household Members Other:: lives with partner, 3 children (6, 13, 28), works for [employer], Housing: Apartment Patient Tobacco Use Status: Never used Tobacco e-Cigarette/Vaping Use: Never Used service: No Current occupational status: employed Cognitive needs: No Hearing needs: No Vision needs: No Review of Systems Const All systems reviewed & are unremarkable except as noted in HPI and below Reports as per HPI, Denies chills, Denies fatigue, Denies fever(s) and Denies headache(s) Eyes Reports no additional complaints ENT Denies headache(s), Reports hoarseness, Reports nasal congestion, Denies post nasal drip, Denies sinus pain and Reports sore throat Card Reports no additional complaints and Denies dyspnea Resp Reports no additional complaints, Reports cough, Denies dyspnea and Denies wheezing GI Reports no additional complaints Reports no additional complaints Musc Reports no additional complaints Skin/Breast Reports system reviewed and no additional complaints, except as documented Neuro Denies headache(s) Psych Reports no additional complaints Endo Denies fatigue Aller/Immun Denies wheezing Physical Exam Vital Signs: Last Vital Signs Temp 98.2 F 02/22/24 08:49 Pulse 88 02/22/24 08:49 BP 126/90 H 02/22/24 08:49 Pulse Ox 98 02/22/24 08:49 Oxygen Delivery Method Room Air 02/22/24 08:49 BMI result Body Mass Index 38.1 Const General: cooperative, healthy appearing, comfortable and no acute distress Nutritional Appearance: average body habitus Orientation/consciousness: patient oriented x3 Limitations: no limitations HEENT Head: Yes normal to inspection Ears: hearing grossly normal bilaterally, external ears normal, TM's normal bilaterally and EAC's normal General nose exam: Normal external nose present Face and sinus: Yes normal facial exam Mouth: Normal oral and palatal mucosa present Throat: Yes posterior oropharynx normal Eyes General: appearance normal, both eyes and all related structures Neck Lymphatic: no lymphadenopathy noted Resp Effort & Inspection: normal respiratory effort, able to speak in complete sentences, respiratory effort not decreased, no respiratory distress and not tachypneic Auscultation: clear to auscultation bilaterally Cardio Rate: regular rate Rhythm: regular rhythm Neuro General: patient oriented x3 Psych Appearance: grossly normal Mental Status: mental status grossly normal Thought content: Normal thought content present Insight: Good insight present (Psych) Judgement: Good judgement present (Psych) Assessment & Plan Assessment & Plan (1) Acute upper respiratory infection: Comment: SARS panel ordered and pending. Code(s): J06.9 - Acute upper respiratory infection, unspecified Plan: Tylenol or ibuprofen as needed for pharyngitis. Increase clear fluids daily. SARS panel pending at this time. Orders: Orders SARS-CoV2/FLU/RSV Today J06.9 - Acute upper respiratory infection, unspecified Coding Level of Care Code Est Pt Level 3 (49685) Diagnoses Acute upper respiratory infection J06.9 Time Spent (min) 20
[2024-02-22 08:49] VITALS: BP 126/90; PULSE 88; TEMP 36.8; O2SAT 98; BMI 38.1
== END 2024-02-22 09:17 | disposition home or self-care (01) ==
PROVIDERS: PCP Internal Medicine; Visit Provider Physician Assistant
DX: Z13.9 Encounter for screening, unspecified (principal); J06.9 Acute upper respiratory infection, unspecified

== ENCOUNTER 2024-03-24 10:00 | Outpatient (REF) | payer OTHER, SELFPAY ==
[2024-03-24 13:23] LABS: MANUAL DIFF FLAG NO
[2024-03-24 13:27] LABS: Basophils Absolute Auto 0.1 X10*3/uL (0.0-0.2); Basophils Percent Auto 0.9 % (0-2); Eosinophils Absolute Auto 0.2 X10*3/uL (0.0-0.4); Eosinophils Percent Auto 2.4 % (0-4); Hematocrit 42.1 % (37.0-47.0); Hemoglobin 14.3 g/dl (12.0-16.0); Imm Gran Abs Auto 0.06 X10*3/uL (0.00-0.03); Imm Gran Pct Auto 0.9 % (0.0-0.4); Lymphocytes Absolute Auto 2.3 X10*3/uL (1.2-4.9); Lymphocytes Percent Auto 32.5 % (20-40); Mean Corpuscular Hemoglobin 31.9 pg (27.0-33.0); Mean Platelet Volume 10.4 fL (9.4-12.3); Monocytes Absolute Auto 0.4 X10*3/uL (0.1-1.2); Monocytes Percent Auto 5.8 % (2-11); Neutrophils Percent Auto 57.5 % (45-73); Platelet Count 257 X10*3/uL (160-400); Red Blood Count 4.48 X10*6/uL (4.20-5.50); Red Cell Distribution Width 12.5 % (11.0-16.0)
[2024-03-24 14:02] LABS: Alanine Aminotransferase 27 U/L (0-31); Albumin Level 4.2 g/dL (3.5-5.0); Alkaline Phosphatase 71 U/L (39-117); Anion Gap 12 (12-20); Aspartate Amino Transferase 29 U/L (5-31); Bilirubin Total 0.6 mg/dL (0.0-1.0); Blood Urea Nitrogen 14 mg/dL (9-16); Calcium 9.1 mg/dL (8.4-10.2); Carbon Dioxide 28 mmol/L (22-29); Chloride 108 mmol/L (96-108); Cholesterol 152 mg/dL (<200); Estimated Glomerular Filt Rate > 60; Glucose Fasting 92 mg/dL (60-99); HDL Cholesterol 46 mg/dL (>40); LDL Cholesterol Calculated 85 mg/dL (<100); Potassium 3.8 mmol/L (3.3-5.1); Sodium 144 mmol/L (135-145); TSH reflex Free T4 1.23 uIU/mL (0.32-4.0); Total Protein 7.5 g/dL (6.5-8.0); Triglycerides 108 mg/dL (<150)
== END 2024-03-24 10:01 | disposition home or self-care (01) ==
LOC: HO.HMGCLDS 10:00
PROVIDERS: PCP Internal Medicine; Visit Provider Internal Medicine
DX: Z00.00 Encounter for general adult medical examination without abnormal findings (principal); R11.2 Nausea with vomiting, unspecified; N93.9 Abnormal uterine and vaginal bleeding, unspecified
CPT/HCPCS: 36415; 80053; 80061; 82306; 84443; 85025; 96127; 99396

== ENCOUNTER 2024-03-24 10:00 | Outpatient (AMB) | payer OTHER, SELFPAY ==
[2024-03-24 10:05] VITALS: BP 126/80; PULSE 74; O2SAT 97; BMI 36.6
--- NOTE | 2024-03-24 10:05 | MHC.PC.OV ---
Vital Signs 03/24/24 10:05 Height 5 ft 5 in Weight 220 lb BMI 36.6 BP 126/80 Blood Pressure Location Rt brachial Position Sitting Pulse 74 Pulse Source Pulse Oximeter Pulse Oximetry (%) 97 Oxygen Delivery Method Room Air Intake Visit Reasons: Annual PE- see comments Intake Note: Pt is here today for PE. Allergies No Known Allergies Allergy (Verified 03/24/24 10:07) Medication List - Last Reconciled 03/24/24 by Louann Jones MD omeprazole 20 mg PO BID 90 days ondansetron 4 mg PO BID-TID PRN Tobacco use date assessed: 03/24/24 Dental Screening Dental Screen Date: 03/24/24 Did you have a dental visit in the last 12 months?: Yes Did you have a dental problem in the last 6 months where you did not have access to dental care?: No Was dental information given to patient?: Patient has dentist HPI Annual PE- see comments HPI Details Patient presents for a physical. [facility] Medical History (Updated 03/24/24 @ 11:53 by Louann Jones MD) Annual physical exam Nausea and vomiting Abdominal bloating Well woman exam Pre-op examination Tennis elbow Contact dermatitis GERD (gastroesophageal reflux disease) Lumbar degenerative disc disease Scabies Surgical History (Updated 03/24/24 @ 11:52 by Louann Jones MD) Hx of colonoscopy History of esophagogastroduodenoscopy (EGD) History of tubal ligation History of section Family History Father CAD (coronary artery disease), Onset Age: 50 Mother Pacemaker Social History Household Members Other:: lives with partner, 3 children (6, 13, 28), works for [employer], sons with autism Housing: Apartment Patient Tobacco Use Status: Former Tobacco user (18 years ago) e-Cigarette/Vaping Use: Never Used service: No Current occupational status: employed Cognitive needs: No Hearing needs: No Vision needs: No Questionnaire PHQ-9 Over the last 2 weeks, how often have you been bothered by any of the following problems? 1. Little interest or pleasure in doing things: not at all 2. Feeling down, depressed, or hopeless: not at all 3. Trouble falling or staying asleep, or sleeping too much: not at all 4. Feeling tired or having little energy: not at all 5. Poor appetite or overeating: not at all 6. Feeling bad about yourself - or that you are a failure or have let yourself or your family down: not at all 7. Trouble concentrating on things, such as reading the newspaper or watching television: not at all 8. Moving or speaking so slowly that other people could have noticed. Or the opposite - being so fidgety or restless that you have been moving around a lot more than usual: not at all 9. Thoughts that you would be better off or of hurting yourself in some way: not at all Total score: 0 Depression Screening Interpretation: Negative Depression Screening Done: Yes 65411 - PHQ-9 Billing: Yes Source: Developed by Drs. Manpreet Arriaga, Patricia Mckeon, Gera López and colleagues, with an educational vianney from [employer]. Thrive Questionnaire Date Thrive assessed: 03/24/24 I am a: Patient What is your living situation today?: I have a steady place to live Within the past 12 months, did the food you bought not last and you didn't have the money to get more?: Never true Within the past 12 months, did you worry whether your food would run out before you got money to buy more?: Never true Do you have trouble paying for medicines?: No Do you have trouble getting transportation to medical appointments?: No Do you have trouble paying your heating and electricity bill?: No Do you have trouble taking care of your child, family member or friend?: No Do you have trouble with day-to-day activities such as bathing, preparing meals, shopping, managing finances, etc.?: No Are you currently unemployed and looking for a job?: No Are you interested in more education?: I choose not to answer this question Please select the resources that you would like help with: None Currently or been in a relationship where the following occur: No concerns reported THRIVE Score: 0 AUDIT C Alcohol Use Questionnaire (AUDIT-C) 1. How often do you have a drink containing alcohol?: Monthly or less 2. How many drinks containing alcohol do you have on a typical day when you are drinking?: 1 or 2 3. How often do you have six or more drinks on one occasion?: Never Total Score: 1 OSEI-7 AMB Questionnaire OSEI-7 Date OSEI - 7 assessed: 03/24/24 Feeling nervous, anxious, or on edge: 0 = Not at all Not being able to stop or control worryin = Not at all Worrying too much about different things: 0 = Not at all Trouble relaxin = Not at all Being so restless that it is hard to sit still: 0 = Not at all Becoming easily annoyed or irritable: 0 = Not at all Feeling afraid as if something awful might happen: 0 = Not at all Total OSEI-7 score (0-4 normal; 5-9 mild; 10-14 moderate; 15-21 severe): 0 Source: Developed by Drs. Manpreet Arriaga, Patricia Mckeon, Gera López and colleagues, with an educational vianney from [employer]. OSEI-7 Assessment Billing OSEI-7 Assessment Tool: OSEI-7 Assessment 23480 Review of Systems Const All systems reviewed & are unremarkable except as noted in HPI and below Reports no additional complaints Eyes Reports no additional complaints ENT Reports no additional complaints Card Reports no additional complaints Resp Reports no additional complaints GI Reports no additional complaints Reports no additional complaints Physical exam (Primary Care) Vital Signs: Last Vital Signs Pulse 74 03/24/24 10:05 BP 126/80 03/24/24 10:05 Pulse Ox 97 03/24/24 10:05 Oxygen Delivery Method Room Air 03/24/24 10:05 BMI result Body Mass Index 36.6 Tobacco/Smoking Status: Tobacco use Status Tobacco use date assessed 03/24/24 03/24/24 10:11 Patient Tobacco Use Status Former Tobacco user (18 03/24/24 10:11 years ago) e-Cigarette/Vaping Use Never Used 03/24/24 10:07 PHQ-9: PHQ-9 Score PHQ-9: Total score 0 03/24/24 10:11 Depression Screening Interpretation: Negative Thrive Assessment: Date of Thrive Assessment Date Thrive assessed 03/24/24 03/24/24 10:11 Currently or been in a relationship where the following occur: No concerns reported Const General: no acute distress HENMT Head: Yes normal to inspection Mouth: Normal oral and palatal mucosa present Throat: Yes posterior oropharynx normal Eyes General: appearance normal, both eyes and all related structures Neck Neck: Yes no lymphadenopathy and Yes supple Resp Effort & Inspection: normal respiratory effort Auscultation: clear to auscultation bilaterally Cardio Rhythm: regular rhythm Heart sounds: S1 normal heart sound present and S2 normal heart sound present GI Inspection: Yes normal to inspection Palpation (GI): Soft to palpation Percussion: Yes normal to percussion Auscultation: normal bowel sounds Coding Level of Care Code Est Pt Prev Care 40-64y(77046) Diagnoses Nausea and vomiting R11.2 Annual physical exam Z00.00 Hx of colonoscopy Z98.890 Abnormal uterine bleeding N93.9 Additional Codes OSEI-7 Assessment Billing - OSEI-7 Assessment Tool: OSEI-7 Assessment 67368 ([id number]) PHQ-9 - 68877 - PHQ-9 Billing: Yes ([id number]) Assessment & Plan Assessment & Plan (1) Nausea and vomiting: Comment: Chronic, EGD 06/2023 moderate chronic active gastric inflammation, positive for H pylori status post treatment, negative Cano's, Code(s): R11.2 - Nausea with vomiting, unspecified Category: Medical Plan: Most likely psychosomatic, stress management discussed with the patient she declined medications or counseling (2) Annual physical exam: Code(s): Z00.00 - Encounter for general adult medical examination without abnormal findings Category: Medical Plan: Well-balanced diet regular physical activity decrease caloric intake discussed with the patient she is up-to-date with colonoscopy mammogram and is established with library circulation technician for dysfunctional vaginal bleeding (3) Hx of colonoscopy: Comment: 06/2023 one hyperplastic polyp repeat in 10 years Code(s): Z98.890 - Other specified postprocedural states Category: Surgical Plan: f/u GI (4) Abnormal uterine bleeding: Comment: FSH/LH in Menopause range Proliferative endometrium on 06/26 Mirena IUD inserted 07/27 Inactive endometrium 10/26 Code(s): N93.9 - Abnormal uterine and vaginal bleeding, unspecified Category: Medical Plan: f/u library circulation technician Orders: Orders Comprehensive [place]. Panel Fast Today Z00.00 - Encounter for general adult medical examination without abnormal findings Complete Blood Count Auto Diff Today Z00.00 - Encounter for general adult medical examination without abnormal findings Lipid Panel Today Z00.00 - Encounter for general adult medical examination without abnormal findings TSH reflex Free T4 Today Z00.00 - Encounter for general adult medical examination without abnormal findings Vitamin D 25-OH Total Today Z00.00 - Encounter for general adult medical examination without abnormal findings
== END 2024-03-24 11:55 | disposition home or self-care (01) ==
PROVIDERS: PCP Internal Medicine; Visit Provider Internal Medicine
DX: R11.2 Nausea with vomiting, unspecified (principal); Z00.00 Encounter for general adult medical examination without abnormal findings; Z98.890 Other specified postprocedural states; N93.9 Abnormal uterine and vaginal bleeding, unspecified

== ENCOUNTER 2024-04-13 07:45 | Outpatient (AMB) | payer OTHER, SELFPAY ==
--- NOTE | 2024-04-13 07:47 | A.OFFVIS_ITS ---
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 Information Interpreted: non-clinical & clinical Environmental Economist: Environmental Economist Present (Stephanie STEINER) Accompanied by: Self / Same As Patient Allergies No Known Allergies Allergy (Verified 04/13/24 07:52) HPI Comments Details: Presenting for EMB [facility] Medical History (Updated 03/24/24 @ 11:53 by Louann Jones MD) Annual physical exam Nausea and vomiting Abdominal bloating Well woman exam Pre-op examination Tennis elbow Contact dermatitis GERD (gastroesophageal reflux disease) Lumbar degenerative disc disease Scabies Surgical History (Updated 03/24/24 @ 11:52 by Louann Jones MD) Hx of colonoscopy History of esophagogastroduodenoscopy (EGD) History of tubal ligation History of section Family History Father CAD (coronary artery disease), Onset Age: 50 Mother Pacemaker Social History Household Members Other:: lives with partner, 3 children (6, 13, 28), works for [employer], sons with autism Housing: Apartment Patient Tobacco Use Status: Former Tobacco user (18 years ago) e-Cigarette/Vaping Use: Never Used service: No Current occupational status: employed Cognitive needs: No Hearing needs: No Vision needs: No Office Procedures Endometrial Biopsy Details: The patient was counseled regarding the indication and benefits of endometrial sampling to rule out endometrial pathology including not limited to endometrial hyperplasia or endometrial cancer and others; The alternatives (Either do nothing vs. hysteroscopy D&C) & the risks were discussed with the patient including but not limited: pain, uterine perforation, bleeding, infection, possible injury to bladder, bowel, ureter, possible need for blood transfusion with all its possible risks. The patient verbalized understanding all questions answered and signed consent. Urine test done in the office was negative The patient was placed into the dorsal lithotomy position; a speculum was inserted in the vagina. Using aseptic technique for the procedure, the cervix was cleansed with Betadine. The anterior lip of the cervix was grasped with a single tooth tenaculum. The uterus was sounded to 7 cm with a 4 mm Pipelle was used. Tissues samples were obtained and placed in formalin, in a patient labeled container and sent to the pathology department. At the end of the procedure, there was minimal bleeding noted The patient tolerated the procedure well and was discharged in good condition with the following instructions: Nothing in the vagina until the bleeding stops. No sex until the bleeding stops, to call if any of the following occurs: fever (>100.4), flu-like symptoms, abdominal pain, heavy bleeding, four smelling vaginal discharge. The patient was instructed to schedule a Follow up appointment in 2 weeks to discuss pathology results of the biopsy and treatment options. This note was generated with a voice recognition program. Some errors may have been overlooked during the review of this note. Sometimes these errors may affect the content or meaning of a given sentence. [id number] Biopsy Results AMB Test Urine AMB Test Urine Negative Last Edit by Stephanie Fierro CMA on 07:54 Assessment & Plan Assessment & Plan (1) Abnormal uterine bleeding: Comment: FSH/LH in Menopause range Proliferative endometrium on 06/26 Mirena IUD inserted 07/27 Inactive endometrium 10/26 Code(s): N93.9 - Abnormal uterine and vaginal bleeding, unspecified Category: Medical Plan: EMB done, see procedure note Orders: Orders AMB HCG Urine Test Today Z32.02 - Encounter for test, result negative Surgical Today N93.9 - Abnormal uterine and vaginal bleeding, unspecified AMB Endometrial Biopsy Today N93.9 - Abnormal uterine and vaginal bleeding, unspecified Coding Level of Care Code Procedure Only Diagnoses Abnormal uterine bleeding N93.9 CPT Codes Endometrial Biopsy - CPT: 69665-Zyddijcilns Biopsy ([id number])
[2024-04-13 07:51] VITALS: BMI 36.6
== END 2024-04-13 08:12 | disposition home or self-care (01) ==
LOC: HO.HWS 07:45
PROVIDERS: PCP Internal Medicine; Visit Provider Obstetrics & Gynecology
DX: N93.9 Abnormal uterine and vaginal bleeding, unspecified (principal); Z32.02 Encounter for pregnancy test, result negative
CPT/HCPCS: 58100

== ENCOUNTER 2024-04-13 07:45 | Outpatient (REF) | payer OTHER, SELFPAY | END 2024-04-13 07:46 | disposition home or self-care (01) | LOC: HO.LNP 07:45 | PROVIDERS: PCP Internal Medicine; Visit Provider Obstetrics & Gynecology | DX: N93.9 Abnormal uterine and vaginal bleeding, unspecified (principal); Z13.9 Encounter for screening, unspecified | CPT/HCPCS: 58100; 81025; 88305 ==

== ENCOUNTER 2024-05-04 09:28 | Outpatient (AMB) | payer OTHER, SELFPAY ==
--- NOTE | 2024-05-04 09:33 | A.OFFVIS_ITS ---
Intake Visit Reasons: EMB results Health Information Director: Health Information Director Present (Cris) Accompanied by: Self / Same As Patient Allergies No Known Allergies Allergy (Verified 05/04/24 09:37) HPI Comments Details: The patient is presenting after endometrial biopsy. The patient has no complaints, no vaginal bleeding, no feverishness chills or abdominal pain. The endometrial biopsy pathology report showed the following: Endometrium, biopsy: - Inactive endometrium with pseudodecidual change consistent with exogenous progestin; no atypia or hyperplasia identified. - Few fragments of endocervical mucosa within normal limits 06/15 [facility] Medical History (Updated 05/04/24 @ 09:43 by Timoteo Ray MD) Annual physical exam Nausea and vomiting Abdominal bloating Well woman exam Pre-op examination Tennis elbow Contact dermatitis GERD (gastroesophageal reflux disease) Lumbar degenerative disc disease Scabies Surgical History (Updated 03/24/24 @ 11:52 by Louann Jones MD) Hx of colonoscopy History of esophagogastroduodenoscopy (EGD) History of tubal ligation History of section Family History Father CAD (coronary artery disease), Onset Age: 50 Mother Pacemaker Social History Household Members Other:: lives with partner, 3 children (6, 13, 28), works for [employer], sons with autism Housing: Apartment Patient Tobacco Use Status: Former Tobacco user e-Cigarette/Vaping Use: Never Used service: No Current occupational status: employed Cognitive needs: No Hearing needs: No Vision needs: No Review of Systems Const All systems reviewed & are unremarkable except as noted in HPI and below Reports as per HPI and Reports no additional complaints GI Reports no additional complaints Reports no additional complaints Assessment & Plan Assessment & Plan (1) Abnormal uterine bleeding: Comment: FSH/LH in Menopause range Proliferative endometrium on 06/26 Mirena IUD inserted 07/27 Inactive endometrium 10/26 04/28 inactive endometrium Code(s): N93.9 - Abnormal uterine and vaginal bleeding, unspecified Category: Medical Plan: Discussed with the patient the results of the EMB pathology, recommended schedule repeat EMB in 3 months. Instructions given to patient to call in case of abnormal bleeding or any other concerns. All questions answered, the patient verbalized understanding Coding Level of Care Code Est Pt Level 3 (19585) Diagnoses Abnormal uterine bleeding N93.9
== END 2024-05-04 11:25 | disposition home or self-care (01) ==
LOC: HO.HWS 09:28
PROVIDERS: PCP Internal Medicine; Visit Provider Obstetrics & Gynecology
DX: N93.9 Abnormal uterine and vaginal bleeding, unspecified (principal)
CPT/HCPCS: 99213

== ENCOUNTER → 2024-05-04 09:28 | Outpatient (BNVA) | payer OTHER, SELFPAY | PROVIDERS: PCP Internal Medicine; Visit Provider Obstetrics & Gynecology | DX: N93.9 Abnormal uterine and vaginal bleeding, unspecified (principal) | CPT/HCPCS: 99212 ==

== ENCOUNTER 2024-08-04 10:34 | Outpatient (REF) | payer OTHER, SELFPAY ==
--- NOTE | ~2024-08-04 | US_ITS ---
CLINICAL HISTORY: D25.9 - Leiomyoma of uterus, unspecified US pelvis transabdominal and transvaginal Comparison: 10/27/2023 Findings: Transabdominal scanning performed for overall anatomy. Transvaginal scanning performed for additional detail. Anteverted uterus is 9.9 cm length. Normal myometrium. Endometrium obscuredwith IUD in position. There are 2 myometrial leiomyomata measuring 2.2 x 2.4 x 2.1 cm, previously 2.4 x 1.7 x 1.8 cm, and 1.5 x 1.5 x 1.2 cm, previously 1.7 x 1.3 x 1.1 cm Right ovary 2.4 x 2.1 x 1.3 cm. Left ovary 1.6 x 1.3 x 1.2 cm. Normal color Doppler of both ovaries. There is a questionable left hydrosalpinx. Correlate for localized pain. No free fluid. IMPRESSION: 1. Uterine myometrial leiomyomata 2. Possible left hydrosalpinx. Correlate clinically This document has been electronically signed by: Vaughn Avalos MD on 08/05/2024 08:56:00
== END 2024-08-04 10:35 | disposition home or self-care (01) ==
LOC: HO.US 10:34
PROVIDERS: PCP Internal Medicine; Visit Provider Obstetrics & Gynecology
DX: D25.9 Leiomyoma of uterus, unspecified (principal)
CPT/HCPCS: 76830; 76856

== ENCOUNTER → 2024-08-04 10:38 | Outpatient (BNV) | payer SELFPAY | PROVIDERS: PCP Internal Medicine; Visit Provider Specialist | DX: D25.9 Leiomyoma of uterus, unspecified (principal) | CPT/HCPCS: 76830; 76856 ==

== ENCOUNTER 2024-09-07 11:11 | Outpatient (AMB) | payer OTHER, SELFPAY ==
--- NOTE | 2024-09-07 11:12 | A.OFFVIS_ITS ---
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 Pelvic ultrasound done in 08/27 showed the following: Transabdominal scanning performed for overall anatomy. Transvaginal scanning performed for additional detail. Anteverted uterus is 9.9 cm length. Normal myometrium. Endometrium obscuredwith IUD in position. There are 2 myometrial leiomyomata measuring 2.2 x 2.4 x 2.1 cm, previously 2.4 x 1.7 x 1.8 cm, and 1.5 x 1.5 x 1.2 cm, previously 1.7 x 1.3 x 1.1 cm Right ovary 2.4 x 2.1 x 1.3 cm. Left ovary 1.6 x 1.3 x 1.2 cm. Normal color Doppler of both ovaries. There is a questionable left hydrosalpinx. Correlate for localized pain. No free fluid. [facility] Medical History Annual physical exam Nausea and vomiting Abdominal bloating Well woman exam Pre-op examination Tennis elbow Contact dermatitis GERD (gastroesophageal reflux disease) Lumbar degenerative disc disease Scabies Surgical History Hx of colonoscopy History of esophagogastroduodenoscopy (EGD) History of tubal ligation History of section Family History Father CAD (coronary artery disease), Onset Age: 50 Mother Pacemaker Social History Household Members Other:: lives with partner, 3 children (6, 13, 28), works for [employer], sons with autism Housing: Apartment Patient Tobacco Use Status: Former Tobacco user e-Cigarette/Vaping Use: Never Used service: No Current occupational status: employed Cognitive needs: No Hearing needs: No Vision needs: No Review of Systems Const All systems reviewed & are unremarkable except as noted in HPI and below Physical Exam Vital Signs: Last Vital Signs BP 140/90 H 09/07/24 11:14 BMI result Body Mass Index 36.8 GI Palpation (GI): Soft to palpation and nontender General: Yes no CVA tenderness External Female Exam: normal external appearance and normal appearance of the urethra Speculum Exam - Vagina: normal appearance of the vagina, normal palpation, no lesions and no masses Speculum Exam - Cervix: normal appearance of the cervix, normal palpation, no lesions, no masses, nontender and Other cervical findings present (IUD string in place) Bimanual exam- vagina & uterus: normal bimanual exam, normal palpation, uterine size normal, normal palpation, uterine shape normal, No Cervical tenderness present and non-tender Bimanual Exam- Adnexa, other: normal adnexae Back/Spine/Pelvis Back: no CVA tenderness Office Procedures Endometrial Biopsy Details: The patient was counseled regarding the indication and benefits of endometrial sampling to rule out endometrial pathology including not limited to endometrial hyperplasia or endometrial cancer and others; The alternatives (Either do nothing vs. hysteroscopy D&C) & the risks were discussed with the patient including but not limited: pain, uterine perforation, bleeding, infection, possible injury to bladder, bowel, ureter, possible need for blood transfusion with all its possible risks. The patient verbalized understanding all questions answered and signed consent. Urine test done in the office was negative The patient was placed into the dorsal lithotomy position; a speculum was inserted in the vagina. Using aseptic technique for the procedure, the cervix was cleansed with Betadine. The anterior lip of the cervix was grasped with a single tooth tenaculum. The uterus was sounded to 7 cm with a 4 mm Pipelle was used. Tissues samples were obtained and placed in formalin, in a patient labeled container and sent to the pathology department. At the end of the procedure, there was minimal bleeding noted The patient tolerated the procedure well and was discharged in good condition with the following instructions: Nothing in the vagina until the bleeding stops. No sex until the bleeding stops, to call if any of the following occurs: fever (>100.4), flu-like symptoms, abdominal pain, heavy bleeding, four smelling vaginal discharge. The patient was instructed to schedule a Follow up appointment in 2 weeks to discuss pathology results of the biopsy and treatment options. This note was generated with a voice recognition program. Some errors may have been overlooked during the review of this note. Sometimes these errors may affect the content or meaning of a given sentence. [id number] Biopsy Assessment & Plan Assessment & Plan (1) Abnormal uterine bleeding: Comment: FSH/LH in Menopause range Proliferative endometrium on 06/26 Mirena IUD inserted 07/27 Inactive endometrium 10/26 04/28 inactive endometrium Code(s): N93.9 - Abnormal uterine and vaginal bleeding, unspecified Category: Medical Plan: EMB done, see procedure note Screening mammogram ordered (2) Uterine myoma: Code(s): D25.9 - Leiomyoma of uterus, unspecified Category: Medical Plan: Discussed with the patient the findings on pelvic ultrasound & the risk of myosarcoma; in addition reviewed with the patient that malignancy and pre malignancy cannot be ruled out without hysterectomy for pathological evaluation ; furthermore, explained to the patient the limitation of pelvic ultrasound and endometrial biopsy in the setting. Discussed with the patient the options of treatment including expectant management versus hysterectomy; the pros and cons, risks benefits of each approach were discussed with the patient including the fact that in cases of myosarcoma, surgical treatment can lead to early diagnosis and positively affects the prognosis; after further discussion, the patient decided to proceed with expectant management. Will repeat pelvic ultrasound periodically. Instructions given to patient to call in case any of the following occurs: pressure symptoms, abnormal uterine bleeding, pelvic pain; and to schedule a 6 months pelvic ultrasound (order placed) and a follow-up appointment . All questions answered, the patient verbalized understanding and agreed with the plan . 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 Category: Medical Plan: Discussed with the patient the finding on ultrasound, possible hydrosalpinx, since the patient does not have any pelvic pain or any other symptoms suggestive of PID, will repeat ultrasound in six-month and instructions given the patient to call or go to emergency room in case of pelvic pain and or bleed Orders: Orders US pelvic and transvaginal 6 Months D25.9 - Leiomyoma of uterus, unspecified MM tomosynthesis screening BI Today Z12.31 - Encounter for screening mammogram for malignant neoplasm of breast AMB Endometrial Biopsy Today N93.9 - Abnormal uterine and vaginal bleeding, unspecified Coding Level of Care Code Est Pt Level 3 (63256) Procedure Only Diagnoses Abnormal uterine bleeding N93.9 Uterine myoma D25.9 Hydrosalpinx N70.11 CPT Codes Endometrial Biopsy - CPT: 57338-[id number] Biopsy ([id number])
[2024-09-07 11:14] VITALS: BP 140/90; BMI 36.8
== END 2024-09-07 11:31 | disposition home or self-care (01) ==
PROVIDERS: PCP Internal Medicine; Visit Provider Obstetrics & Gynecology
DX: N93.9 Abnormal uterine and vaginal bleeding, unspecified (principal); D25.9 Leiomyoma of uterus, unspecified; N70.11 Chronic salpingitis
CPT/HCPCS: 58100; 99213

== ENCOUNTER 2024-09-07 11:11 | Outpatient (REF) | payer OTHER, SELFPAY | END 2024-09-07 11:12 | disposition home or self-care (01) | LOC: HO.LNP 11:11 | PROVIDERS: PCP Internal Medicine; Visit Provider Obstetrics & Gynecology | DX: N93.9 Abnormal uterine and vaginal bleeding, unspecified (principal); D25.9 Leiomyoma of uterus, unspecified; N70.11 Chronic salpingitis | CPT/HCPCS: 58100; 88305; 99212 ==

== ENCOUNTER 2024-10-03 08:06 | Outpatient (REF) | payer OTHER, SELFPAY | END 2024-10-03 08:07 | disposition home or self-care (01) | LOC: HO.MAMMO 08:06 | PROVIDERS: PCP Internal Medicine; Visit Provider Obstetrics & Gynecology | DX: Z12.31 Encounter for screening mammogram for malignant neoplasm of breast (principal) | CPT/HCPCS: 77063; 77067 ==

== ENCOUNTER → 2024-10-03 08:15 | Outpatient (BNV) | payer OTHER, SELFPAY | PROVIDERS: PCP Internal Medicine; Visit Provider Internal Medicine | DX: Z12.31 Encounter for screening mammogram for malignant neoplasm of breast (principal) | CPT/HCPCS: 77063; 77067 ==

== ENCOUNTER 2024-12-06 07:37 | Outpatient (AMB) | payer OTHER, SELFPAY ==
--- OUTSIDE RECORDS SUMMARY | 2024-12-06 07:40 | XMS_ITS | Clinical Summary ---
Author Organization [facility] Address [address] [place] [id number] Phone Care Team Providers Care Sock Boarder Name Role Phone Pcp, Unknown Primary Care Provider Unavailabl e Allergies No known active allergies Social History Tobacco Use Types Packs/Day Years Used Date Smoking Tobacco: Never Assessed Education Answer Date Recorded Are you interested in more education? Not on mendez e 07/31/2022 Are you concerned about learning? Not on file 07/31/2022 No 07/31/2022 No 07/31/2022 Digital Access Answer Date Recorded No 09/01/2022 No 09/01/2022 Reliable internet access at home? Not on file 09/01/2022 Device with a working camera? Not on file Intimate Partner Violence Answer Date R ecorded Are you denied basic needs s uch as food, clothing, or medical care? No 12/25/2022 In the past 12 months have y ou been in a relationship with a person who hurts, threatens, or tries to control you? No 12/25/2022 Are you denied basic needs s uch as food, clothing, or medical care? No 12/25/2022 In the past 12 months have y ou been in a relationship with a person who hurts, threatens, or tries to control you? No 12/25/2022 Comments Unknown Sex and Gender Information Value Date Recorded Sex Assigned at Female 07/01/2020 11:23 PM EDT Legal Sex Female 11:03 PM EDT Gender Identity Female 07/01/2020 11:23 PM EDT Sexual Orientation Not on file Last Filed Vital Signs Vital Sign Reading Time Taken Comments Blood Pressure 148/93 12/26/2022 5:57 AM EDT Pulse 71 12/26/2022 4:04 AM EDT Temperature 36.7 C (98.1 F) 12/26/2022 5:57 AM EDT Respiratory Rate 16 12/26/2022 5:57 AM EDT Oxygen Saturation 98% 12/26/2022 5:57 AM EDT Inhaled Oxygen Concentration - - Weight 102.1 kg (225 lb) 12/25/2022 8:18 PM EDT Height 165.1 cm (5' 5 ) 12/25/2022 8:18 PM EDT Body Mass Index 37.44 12/25/2022 8:18 PM EDT Plan of Treatment Health Maintenance Due Date Last Done Comments Adult Td,Tdap Booster 1970 LIPID PANEL 1970 DEPRESSION SCREENING 1982 SMOKING Hx and SMOKELESS TOBACCO SCREENING 1983 HEPATITIS C SCREENING 1988 HIV ONE-TIME SCREENING (18-6 5 YEARS) 1988 PAP SMEAR 1991 MAMMOGRAM 2010 COLOGUARD 2015 COLONOSCOPY 2015 COLORECTAL CANCER SCREENING 2015 FIT TEST 2015 FOBT 2015 SIGMOIDOSCOPY 2015 VIRTUAL COLONOSCOPY 2015 PNEUMOCOCCAL VACCINES (50+ years) (1 of 1 - PCV) 2020 ZOSTER VACCINES (1 of 2) 2020 COVID-19 VACCINE (3 - 2023-2 5 season) 2023 09/24/2020, 09/03/2020 SCREENING FOR DIABETES 12/25/2025 12/25/2022 HEPATITIS A VACCINES Aged Out No long er eligible based on patient's age to complete this topic HIB VACCINES Aged Out No longer eligi ble based on patient's age to complete this topic MENINGOCOCCAL VACCINES (ACWY) Aged Out No longer eligible based on patient's age to complete this topic MENINGOCOCCAL VACCINES (B) Aged Out N o longer eligible based on patient's age to complete this topic Medical Devices Not on file [place] [address] [place] [address] [place] [address] [place] [place] [address] [address] [place] [address] [place] [address] [place] [address] [employer]CO Care Teams Sock Boarder Relationship Specialty Start Date End Date Pcp, Unknown PCP - General 07/01/20 Additional Source Comments The information contained in this document represents components of the legal health record. It is not the complete legal health record.[facility]
--- NOTE | 2024-12-06 07:43 | A.OFFVIS_ITS ---
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 No complaints. Last Pap/HPV was negative in 03/27 Last Mammogram was BI-RADS 1 in 10/27 Last Colonoscopy was in 06/26, the recommendation was to repeat in 10 years [facility] Medical History (Updated 12/06/24 @ 07:50 by Timoteo Ray MD) Well woman exam Annual physical exam Nausea and vomiting Abdominal bloating Pre-op examination Tennis elbow Contact dermatitis GERD (gastroesophageal reflux disease) Lumbar degenerative disc disease Scabies Surgical History Hx of colonoscopy History of esophagogastroduodenoscopy (EGD) History of tubal ligation History of section Family History Father CAD (coronary artery disease), Onset Age: 50 Mother Pacemaker Social History Household Members Other:: lives with partner, 3 children (6, 13, 28), works for [employer], sons with autism Housing: Apartment Patient Tobacco Use Status: Former Tobacco user e-Cigarette/Vaping Use: Never Used service: No Current occupational status: employed Cognitive needs: No Hearing needs: No Vision needs: No Female Reproductive History Menstrual Menopause type: natural Date of last pap smear: 03/09/23 Date of Mammogram: 10/03/24 Review of Systems Const All systems reviewed & are unremarkable except as noted in HPI and below Card Reports as per HPI Resp Reports as per HPI GI Reports as per HPI and Reports no additional complaints Reports as per HPI Physical Exam Vital Signs: Last Vital Signs BP 132/84 12/06/24 07:44 BMI result Body Mass Index 37.4 Const General: cooperative, healthy appearing and comfortable Chest Chest palpation & inspection: normal inspection of the chest and normal palpation of entire chest wall Breast/axilla inspection: normal inspection of the breasts and normal inspection of the axillae Breast/axilla palpation: normal palpation of the breasts, normal palpation of the axillae and no axillary lymphadenopathy Resp Effort & Inspection: normal respiratory effort Auscultation: clear to auscultation bilaterally Percussion: percussion normal Cardio Palpation: normal PMI Rate: regular rate Rhythm: regular rhythm Heart sounds: no murmurs and no rubs Peripheral pulses: Peripheral pulses 2+ throughout GI Inspection: Yes normal to inspection Palpation (GI): Soft to palpation, nontender, no guarding, not rigid and No hepatosplenomegaly present Percussion: Yes normal to percussion Auscultation: normal bowel sounds Rectal Exam - Female: deferred General: Yes bladder normal to palpation External Female Exam: No lesion Speculum Exam - Vagina: normal appearance of the vagina, normal palpation, normal vaginal discharge and not erythematous Speculum Exam - Cervix: normal appearance of the cervix and normal palpation Bimanual exam- vagina & uterus: normal bimanual exam, normal palpation, uterine size normal, bladder normal to palpation, consistency normal and normal palpation Bimanual Exam- Adnexa, other: normal adnexae, no masses and no tenderness Assessment & Plan Assessment & Plan (1) Well woman exam: Code(s): Z01.419 - Encounter for gynecological examination (general) (routine) without abnormal findings Category: Medical Plan: Co testing not indicated this year. Counseled the patient about the recommended dietary allowance of 1200 mg of Calcium & 600 IU of vitamin D. Instructions given the patient to schedule next screening Mammogram in 10/28. The patient was instructed to perform monthly self-breast exams and schedule annual exam in a year. All questions answered and the patient verbalized understanding. Coding Level of Care Code Est Pt Prev Care 40-64y(15970) Diagnoses Well woman exam Z01.419
[2024-12-06 07:44] VITALS: BP 132/84; BMI 37.4
== END 2024-12-06 08:02 | disposition home or self-care (01) ==
LOC: HO.HWS 07:37
PROVIDERS: PCP Internal Medicine; Visit Provider Obstetrics & Gynecology
DX: Z01.419 Encounter for gynecological examination (general) (routine) without abnormal findings (principal)
CPT/HCPCS: 99396; 99459

== ENCOUNTER → 2024-12-06 07:37 | Outpatient (BNVA) | payer OTHER, SELFPAY | PROVIDERS: PCP Internal Medicine; Visit Provider Obstetrics & Gynecology | DX: Z01.419 Encounter for gynecological examination (general) (routine) without abnormal findings (principal) | CPT/HCPCS: 99396 ==